=== PATIENT | female | born 1960 | race Caucasian/White ===

== ENCOUNTER 2019-02-25 17:55 | Inpatient (IN) ==
[2019-02-25] MEDS ORDERED: ASPIRIN PO ONE (18:11)
[2019-02-25] MEDS ORDERED: ASPIRIN PR ONE (18:11)
--- NOTE | 2019-02-25 18:27 | Diag Imaging Result Doc PS360 ---
EXAM: CHEST-2 VIEWS HISTORY: SHORTNESS OF BREATH TECHNIQUE: Chest two views COMPARISON: 02/13/2019 FINDINGS: The right lung remains well expanded and clear. There are infiltrates and atelectasis to the left lung with pleural thickening and an effusion similar to the prior study. The heart remains enlarged. IMPRESSION: Stable chest Electronically signed by Adriel Hugo 02/25/2019 6:24 PM
--- NOTE | 2019-02-25 18:28 | EKG Report ---
Test Performed on : 02/25/2019 6:03:19 PM Test Reason : SHORTNESS OF BREATH Blood Pressure : / mmHG Vent. Rate : 128 BPM Atrial Rate : 128 BPM P-R Int : 128 ms QRS Dur : 082 ms QT Int : 304 ms P-R-T Axes : 047 023 137 degrees QTc Int : 443 ms Sinus tachycardia. Possible Left atrial enlargement Nonspecific ST and T wave abnormality Abnormal ECG When compared with ECG of 30-MAY-2018 12:12, Vent. rate has increased BY 65 BPM Non-specific change in ST segment in Lateral leads T wave inversion more evident in Inferior leads T wave inversion now evident in Lateral leads Unconfirmed Result
[2019-02-25 18:41] LABS: BASO# 0.01 X1000 (0.0-0.2); EOS# 0.02 X1000 (0.0-0.7); EOS% 0.1 % (0.0-10.0); IMM GRAN% 0.5 % (0.0-0.5); LYMPH% 5.4 % (20.5-51.1); MCH 31.6 PG (27-31); MCHC 33.3 g/dL (33-37); MCV 94.7 FL (81-99); MONO# 1.62 X1000 (0.11-0.59); MONO% 7.9 % (1.7-9.3); MPV 10.1 FL (7.4-10.4); NEUT# 17.55 X1000 (1.4-6.5); NEUT% 86.1 % (42.2-75.2); PLT 266 X1000 (130-400); RBC 4.12 XMIL (4.2-5.4); RDW 13.6 % (11.5-14.5)
[2019-02-25 19:04] LABS: INR 1.18; PROTIME 15.1 Seconds (11.0-16.0); PTT 26.5 Seconds (22.3-41.8)
[2019-02-25 19:09] LABS: AGAP 20; ALB/GLOB RATIO 1.2; ALBUMIN 3.6 g/dL (3.5-5.0); ALKALINE PHOSPHATASE 125 U/L (32-104); BUN 21 mg/dL (8-22); CALCIUM 10.3 mg/dL (8.8-10.2); CHLORIDE 95 mmol/L (98-107); CK PROFILE 73 U/L (24-173); COSMO 279; CREATININE 0.7 mg/dL (0.5-0.9); ESTIMATED GFR > 60; GLUCOSE 103 mg/dL (70-104); GOT 15 U/L (10-30); GPT 18 U/L (10-36); POTASSIUM 3.6 mmol/L (3.5-5.1); SODIUM 138 mmol/L (136-145); TCO2 23 mmol/L (25-35); TOTAL BILIRUBIN 0.73 mg/dL (0.20-1.00); TOTAL PROTEIN 6.6 g/dL (6.3-8.3)
[2019-02-25] MEDS ORDERED: NS 1,000 ML IV ONE ×3 (19:09→21:24)
--- NOTE | 2019-02-25 19:09 | PROVIDER DOCUMENTATION ---
HPI-Respiratory General - General Chief Complaint: Shortness of Breath Stated Complaint: SOB Time Seen by Provider: 02/25/19 18:40 Source: patient Allergies/Adverse Reactions: Patient Allergies Allergy/AdvReac Type Severity Reaction Status Date / Time No Known Allergies Allergy Verified 02/25/19 18:36 Home Medications: Home Medication List Medication Instructions Recorded Confirmed Last Taken Type Fluoxetine [Prozac] 20 mg PO DAILY 08/21/17 02/25/19 02/25/19 History Hydrochlorothiazide 12.5 mg PO DAILY 08/21/17 02/25/19 02/25/19 History Naproxen Sodium [Aleve] 220 mg PO DAILY 08/21/17 02/25/19 02/25/19 History Albuterol Sulfate [Proair Hfa] 2 inh INHALATION Q4HR 02/25/19 02/25/19 02/25/19 History Amitriptyline HCl 25 mg PO QHS 02/25/19 02/25/19 02/24/19 History Atorvastatin Calcium 80 mg PO QHS 02/25/19 02/25/19 02/24/19 History Budesonide 0.5 mg INHALATION BID 02/25/19 02/25/19 02/25/19 History Cephalexin [Keflex] 500 mg PO Q6HR 02/25/19 02/25/19 02/25/19 History Ipratropium/Albuterol INH 1 puff INH RTQ6H 02/25/19 02/25/19 02/24/19 History [Combivent Respimat Inhaler] Oxycodone HCl/Acetaminophen 1 ea PO TID 02/25/19 02/25/19 02/21/19 History [Oxycodone-Acetaminophen 5-325] - History of Present Illness-Resp Nature of Presenting Problem: 59 yr old F, hx of lymphoma, small cell lung cancer, presenting with several day hx of worsening SOB, as well as worsening cough, vomiting, dizziness, and weakness. The pt has a complicated hx that involves treatment within the past year for SCC and lymphoma. She reports that she's had SOB for some time, but has found it to be worsening over the past several days. She also notes a decrease in energy over the past several weeks, as well as intermittent dizziness, though without loss of consciousness. She has attempted breathing treatments at home over the weekend which she notes has not improved her symptoms. She also co mplains of a LLQ abdominal pain that radiates through into her chest, as well as associated vomiting. Quality of Pain: reports: sharp Severity in ED: reports: moderate Onset/Duration: reports: other (past several days, about 5 or 6) Timing: reports: still present Context: reports: recent chemotherapy Cough Quality/Degree: reports: moderate, productive cough, sputum Current Respiratory Medication Therapy: Initiated A/A nebulizer Modifying Factors: improves with: exertion, coughing, deep breath Associated Symptoms: reports: denies symptoms Similar Symptoms Previously?: Yes Review of Systems - Adult - REVIEW OF SYSTEMS - ADULT Constitutional: reports: fatique Eyes: reports: no symptoms reported Ears, Nose, Mouth & Throat: reports: no symptoms reported Cardiovascular: reports: chest pain Respiratory: reports: cough, shortness of breath, wheezing Gastrointestinal: reports: nausea, vomiting Genitourinary: reports: no symptoms reported Musculoskeletal: reports: no symptoms reported Integumentary: reports: no symptoms reported Neurological: reports: dizziness/vertigo Psychiatric: reports: no symptoms reported Past History - Adult - PAST MEDICAL HISTORY-ADULT Review of Records: reports: Nursing Assessment Review Major Childhood Illnesses: reports: denies history Cardiovascular: reports: HTN Respiratory: reports: cancer, lung disease Endocrine/Immune: reports: Lymphoma - PRIOR SURGERIES/PROCEDURES Surgical/Procedure History: reports: recent surgery (may 2018) Physical Exam-General - PHYSICAL EXAM-ADULT Initial Vital Signs Reviewed: Yes - CONSTITUTIONAL General Appearance: alert, mild distress - EYES Eyes: PERRL/EOMI - HEAD, EARS, NOSE, MOUTH & THROAT HENMT: moist mucous membranes - RESPIRATORY Respiratory: wheezing, pain on inspiration - CARDIOVASCULAR Cardiovascular: tachycardia - GASTROINTESTINAL (ABDOMEN) Abdominal Exam: normal bowel sounds, soft, tenderness - MUSCULOSKELETAL Back Exam: CVA tenderness - NEUROLOGIC Neurologic: grossly normal - PSYCHIATRIC Psych/Mental Status: normal mood/affect, oriented x 3 - HEART Score HEART Score: History: Slightly Suspicious HEART Score: ECG: Non-Specific Repolarization Disturbance/LBBB/PM HEART Score: Age: 45-65 Years HEART Score: Risk Factors for Atherosclerotic Disease: 1 or 2 Risk Factors HEART Score: Troponin: < or = Normal Limit Total HEART Score:: 3 Progress - PLAN OF CARE/RESULTS Progress/Plan/Lab Results: Vital Signs - 8 hr 02/25/19 18:05 02/25/19 20:12 Temperature 97.5 F L Pulse Rate 127 H 88 Respiratory Rate 22 16 Blood Pressure 131/85 O2 Sat by Pulse Oximetry 95 Laboratory Results - last 24 hr 02/25/19 02/25/19 02/25/19 18:15 18:15 18:15 WBC 20.40 H RBC 4.12 L Hgb 13.0 Hct 39.0 MCV 94.7 MCH 31.6 H MCHC 33.3 RDW Std Deviation 13.6 Plt Count 266 MPV 10.1 Immature Gran % (Auto) 0.5 Neut % (Auto) 86.1 H Lymph % (Auto) 5.4 L [place] % (Auto) 7.9 Eos % (Auto) 0.1 Baso % (Auto) 0.0 Immature Gran # (Auto) 0.10 H Neut # (Auto) 17.55 H Lymph # (Auto) 1.10 L [place] # (Auto) 1.62 H Eos # (Auto) 0.02 Baso # (Auto) 0.01 PT INR PTT (Actin FS) Sodium 138 Potassium 3.6 Chloride 95 L Carbon Dioxide 23 L Anion Gap 20 BUN 21 Creatinine 0.7 Estimated GFR/1.73 m2 > 60 BUN/Creatinine Ratio 30 Glucose 103 Calculated Osmolality 279 Calcium 10.3 H Total Bilirubin 0.73 AST 15 ALT 18 Alkaline Phosphatase 125 H Creatine Kinase 73 Troponin T [id number] Pept Total Protein 6.6 Albumin 3.6 Globulin 3.0 Albumin/Globulin Ratio 1.2 Plasma Lactate 3.9 H Urine Source Urine Color Urine Turbidity Urine pH Ur Specific [place] Urine Protein Ur Glucose (Stick) Ur Ketones (Stick) Urine Blood Urine Nitrite Urine Bilirubin Urobilinogen Dipstick Urine Leukocytes Urine WBC (Auto) Urine RBC (Auto) U Epithel Cells (Auto) Urine Bacteria (Auto) Urine Crystals Small Round Cells Urine Casts Urine Yeast-like Cells 02/25/19 02/25/19 02/25/19 18:15 18:15 18:15 WBC RBC Hgb Hct MCV MCH MCHC RDW Std Deviation Plt Count MPV Immature Gran % (Auto) Neut % (Auto) Lymph % (Auto) [place] % (Auto) Eos % (Auto) Baso % (Auto) Immature Gran # (Auto) Neut # (Auto) Lymph # (Auto) [place] # (Auto) Eos # (Auto) Baso # (Auto) PT 15.1 INR 1.18 PTT (Actin FS) 26.5 Sodium Potassium Chloride Carbon Dioxide Anion Gap BUN Creatinine Estimated GFR/1.73 m2 BUN/Creatinine Ratio Glucose Calculated Osmolality Calcium Total Bilirubin AST ALT Alkaline Phosphatase Creatine Kinase Troponin T < 0.010 [id number] Pept 207 Total Protein Albumin Globulin Albumin/Globulin Ratio Plasma Lactate Urine Source Urine Color Urine Turbidity Urine pH Ur Specific [place] Urine Protein Ur Glucose (Stick) Ur Ketones (Stick) Urine Blood Urine Nitrite Urine Bilirubin Urobilinogen Dipstick Urine Leukocytes Urine WBC (Auto) Urine RBC (Auto) U Epithel Cells (Auto) Urine Bacteria (Auto) Urine Crystals Small Round Cells Urine Casts Urine Yeast-like Cells 02/25/19 21:00 WBC RBC Hgb Hct MCV MCH MCHC RDW Std Deviation Plt Count MPV Immature Gran % (Auto) Neut % (Auto) Lymph % (Auto) [place] % (Auto) Eos % (Auto) Baso % (Auto) Immature Gran # (Auto) Neut # (Auto) Lymph # (Auto) [place] # (Auto) Eos # (Auto) Baso # (Auto) PT INR PTT (Actin FS) Sodium Potassium Chloride Carbon Dioxide Anion Gap BUN Creatinine Estimated GFR/1.73 m2 BUN/Creatinine Ratio Glucose Calculated Osmolality Calcium Total Bilirubin AST ALT Alkaline Phosphatase Creatine Kinase Troponin T [id number]-[id number]-Qwaahwrklzw Pept Total Protein Albumin Globulin Albumin/Globulin Ratio Plasma Lactate Urine Source CLEAN CATCH Urine Color YELLOW Urine Turbidity HAZY Urine pH 6.0 Ur Specific [place] 1.029 Urine Protein 30 A Ur Glucose (Stick) NEGATIVE Ur Ketones (Stick) TRACE A Urine Blood TRACE A Urine Nitrite NEGATIVE Urine Bilirubin NEGATIVE Urobilinogen Dipstick 2 A Urine Leukocytes NEGATIVE Urine WBC (Auto) 10-20 A Urine RBC (Auto) <10 U Epithel Cells (Auto) >10 A Urine Bacteria (Auto) 1+ Urine Crystals NONE SEEN Small Round Cells TRANS PRESENT Urine Casts NONE SEEN Urine Yeast-like Cells PRESENT Orders Category Date Time Status Cardiac Monitoring DIRECTED Care 02/25/19 18:11 Active Nursing- MD Consult Request ROUTINE Care 02/25/19 21:23 Active Oxygen Therapy- ED Nursing DIRECTED Care 02/25/19 18:11 Active Saline Loc NOW Care 02/25/19 18:11 Active Physician/Provider Consults Routine Cons 02/26/19 08:00 Ordered CHEST-2 VIEWS [RAD] Stat Exams 02/25/19 18:11 Completed CTA [CT ANGIOGRM PULMONARY ARTERIES] [CT] Stat Exams 02/25/19 19:45 Completed BLOOD CULTURE [BLDCUL] Stat Lab 02/25/19 19:58 Results CBC WITH ELECTRONIC DIFF [HEME] Stat Lab 02/25/19 18:15 Completed CK PROFILE [SP CHEM] Stat Lab 02/25/19 18:15 Completed COMPREHENSIVE METABOLIC PANEL [CHEM] Stat Lab 02/25/19 18:15 Completed LACTATE, PLASMA [CHEM] Stat Lab 02/25/19 18:15 Completed PRO B-NATRIURETIC PEPTIDE Stat Lab 02/25/19 18:15 Completed PROTIME WITH INR [COAG] Stat Lab 02/25/19 18:15 Completed PTT [COAG] Stat Lab 02/25/19 18:15 Completed TROPONIN T Stat Lab 02/25/19 18:15 Completed URINALYSIS W/POSS RFLX CULT [URINALYSIS] Stat Lab 02/25/19 21:00 Completed URINE CULTURE [RM] Routine Lab 02/25/19 21:43 Received URINE MANUAL MICROSCOPIC [URINALYSIS] Stat Lab 02/25/19 21:00 Completed 0.9% Sodium Chloride Inj [Ns] 1,000 ml Med 02/25/19 21:24 Active IV 100 mls/hr 0.9% Sodium Chloride Inj [Ns] 1,000 ml Med 02/25/19 19:09 Discontinued IV 999 mls/hr 0.9% Sodium Chloride Inj [Ns] 1,000 ml Med 02/25/19 19:55 Discontinued IV 999 mls/hr Acetaminophen [Tylenol] Med 02/25/19 21:24 Active 650 mg PO Q6H PRN PRN Amitriptyline [Elavil] Med 02/26/19 21:00 Ordered 25 mg PO QHS Aspirin Med 02/25/19 18:11 Discontinued 300 mg SC NOW ONE Aspirin Med 02/25/19 18:11 Discontinued 325 mg PO NOW ONE Atorvastatin Calcium Med 02/26/19 21:00 Ordered 80 mg PO QHS Budesonide [Pulmicort] Med 02/26/19 07:30 Active 0.5 mg INH RTBID Enoxaparin [Lovenox] Med 02/25/19 21:30 Active 90 mg SUBQ Q12H Fluoxetine [Prozac] Med 02/26/19 09:00 Ordered 20 mg PO DAILY Hydrochlorothiazide Med 02/26/19 09:00 Ordered 12.5 mg PO DAILY Ipratropium [place] Neb [Atrovent Neb] Med 02/25/19 19:55 Discontinued 0.5 mg INH NOW ONE Ipratropium/Albuterol INH [Combivent Respimat Inhaler] Med 02/25/19 22:00 Ordered 1 puff INH RTQ6H Morphine Med 02/25/19 21:24 Active 2 mg IV Q3H PRN PRN Ondansetron [Zofran] Med 02/25/19 21:24 Active 4 mg IV Q4-6H PRN PRN Aerosol Treatments Routine Oth 02/25/19 19:55 Completed Aerosol Treatments Routine Oth 02/25/19 21:25 Completed Aerosol Treatments Stat Oth 02/25/19 19:55 Completed Aerosol Treatments Stat Oth 02/25/19 21:25 Completed CP/SOB/Palp >45 yrs of Age Stat Oth 02/25/19 18:11 Ordered MDI Treatments Stat Oth 02/25/19 21:25 Completed EKG [EKG] Stat Ther 02/25/19 18:11 Draft Echo Spec/Color Doppler Routine Ther 02/25/19 21:41 Ordered Transfer/Admit Order [TRANSFER] Routine Transfer 02/25/19 21:56 Ordered Result Diagrams: 02/25/19 18:15 02/25/19 18:15 - EKG 1 Time of EKG reading by physician:: 18:03 EKG Read and Signed by:: Yuval Silva EKG Interpretation (*Must complete 3 of following elements*): Abnormal Rate: 128 Rhythm: sinus tachycardia Romance: normal QRS: normal SC Interval: normal ST Wave: non-specific ST changes Prior EKG Comparison: unchanged from prior Comments: sinus tachy, but non-specific changes are stable - XRAY 1 XRAY Study: Chest Impression: See EMR Report XRAY Interpretation: stable chest; no acute processes when compared to recent previous imaging - CT/MRI 1 CT Study: Angiogram Impression: See EMR Report CT Results: small pulmonary emboli - CONSULTS/PCP/HOSPITALIST Notification #1 *Consult/PCP/Hospitalist*: Dr. Quan Time Discussed: 21:00 Consult Disposition: Admit Departure - Departure Date of Disposition Decision: 02/25/19 Time of Disposition Decision: 21:15 DIAGNOSIS: Shortness of breath, Leukocytosis Disposition: ADMITTED INPATIENT 09 Certified Medical Emergency: Emergent Condition: Fair Referrals and Follow-Ups: Monica Yang MD [Primary Care Provider] - - Critical Care Note This patient required my direct & personal management of CC.: No Attestation - Physician/ LEANNE Attestation Patient care was provided by Advanced Practice Provider:: No The physician spent face to face time with patient:: Yes Advanced Practice Provider documentation review:: Supervising physician onsite and consulted in the evaluation and care of this patient. The physician did have a face to face encounter with the patient.
[2019-02-25] MEDS ORDERED: ATROVENT NEB INH ONE (19:55)
--- NOTE | 2019-02-25 20:54 | Diag Imaging Result Doc PS360 ---
EXAM: CT ANGIOGRM PULMONARY ARTERIES HISTORY: SOB, Pain with inspiration TECHNIQUE: CT chest with intravenous contrast. Pulmonary R2 protocol with MIP images. COMPARISON: 08/13/2017 FINDINGS: Multilevel loculated left pleural effusions versus empyemas. There is left lung atelectasis and infiltrates. Possible left upper lobectomy. No large central pulmonary emboli. There are tiny peripheral pulmonary emboli in the right middle and lower lobes. Moderate-sized pericardial effusion. No cardiomegaly. No thoracic aortic aneurysm or dissection. Prominent mediastinal nodes. Trace right pleural fluid. There are lytic lesions within several left ribs. Enlarged lymph nodes in the lower neck. IMPRESSION: 1.Tiny peripheral pulmonary emboli 2.Abnormally enlarged mediastinal nodes and lytic destruction within several left ribs 3.Left upper lobectomy with pleural thickening and loculated effusions 4.Pericardial effusion This exam was performed using automated exposure control, adjustment of mA or kV according to patient size, and/or use of iterative reconstruction technique. Electronically signed by Adriel Hugo 02/25/2019 8:52 PM
[2019-02-25 21:11] LABS: URINE SOURCE CLEAN CATCH
[2019-02-25 21:17] LABS: BILIRUBIN URINE NEGATIVE (NEGATIVE); BLOOD URINE TRACE (NEGATIVE); COLOR YELLOW; GLUCOSE URINE NEGATIVE (NEGATIVE); KETONE URINE TRACE mg/dL (NEGATIVE); LEUKOCYTES URINE NEGATIVE (NEGATIVE); NITRITE URINE NEGATIVE (NEGATIVE); PROTEIN URINE 30 mg/dL (NEGATIVE); SP GRAVITY URINE 1.029; TURBIDITY URINE HAZY (CLEAR); UROBILINOGEN URINE 2 mg/dL (NORMAL)
[2019-02-25] MEDS ORDERED: TYLENOL PO PRN (21:24)
[2019-02-25] MEDS ORDERED: ZOFRAN IV PRN (21:24)
[2019-02-25 21:41] LABS: UR EPITHELIAL CELLS >10 /HPF (<10); URINE BACTERIA 1+ /HPF; URINE RBC <10 /HPF (<10)
[2019-02-25 21:48] LABS: URINE CASTS NONE SEEN; URINE CRYSTALS NONE SEEN; URINE SMALL ROUND CELLS TRANS PRESENT; URINE YEAST PRESENT
[2019-02-25] MEDS: COMBIVENT RESPIMAT INHALER INH SCH (22:00)
[2019-02-25] MEDS: LOVENOX SUBQ SCH (23:12)
[2019-02-26] MEDS ORDERED: VANCOMYCIN IV PER PHARMACY MISC SCH (01:15)
[2019-02-26] MEDS: MORPHINE IV PRN (02:53)
[2019-02-26] MEDS: COMBIVENT RESPIMAT INHALER INH SCH (03:11)
[2019-02-26] MEDS: ZOSYN 3.375 GM in NS 50 ML IV SCH ×4 (03:16→18:15)
[2019-02-26] MEDS ORDERED: NS 1,000 ML ONE (03:25)
[2019-02-26] MEDS ORDERED: VANCOMYCIN 2,350 MG in NS 500 ML IV ONE (03:30)
--- NOTE | 2019-02-26 04:39 | HISTORY AND PHYSICAL ---
PRIMARY CARE PHYSICIAN: Monica Yang MD ONCOLOGIST: Mayr Ann Fisher MD CHIEF COMPLAINT: Shortness of breath and cough. HISTORY OF PRESENT ILLNESS: Ms. Villagomez is a 59-year-old female who comes in after having cough for the past 4 months and increasing shortness of breath with pain in her chest that has more to do with inspiration than cough than traditional chest pain. She was also coughing so much that she was having vomiting, dizziness and weakness. 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 Her last chemotherapy treatment was 9 months ago. She also has hypertension, hyperlipidemia, migraines and arthritis. She has had decreased energy over the past several days and the intermittent dizziness without loss of consciousness. She stated that she has been lying around for the past 1 more week related to not feeling well. She did attempt breathing treatments but had no improvement. She has also had some abdominal pain that was associated with the vomiting. She also stated that the day before yesterday she was lying in bed and felt as if she heard a pop in her chest, and then she coughed up a large amount of what she said in her own words "looked like pus." A CT angio was completed in the emergency room, which showed tiny peripheral pulmonary emboli, abnormal enlarged mediastinal nodes and lytic destruction within several left ribs. Left upper lobectomy with pleural thickening and loculated effusion, pericardial effusions. There was mention of the effusions possibly being empyemas. She will be admitted for antibiotic treatment and further evaluation and treatment. PAST MEDICAL HISTORY: See HPI. PREVIOUS SURGICAL HISTORY: Right nodule right groin resection. Left upper lobectomy. SOCIAL HISTORY: No alcohol. No illicit drugs. Quit smoking 1-1/2 years ago. She was a pack-per- day smoker for many years. FAMILY HISTORY: Positive for hypertension, also father had lung cancer, mother had colon cancer, and brother had lung cancer with mets to the liver and bone. ALLERGIES: NO KNOWN DRUG ALLERGIES. HOME MEDICATIONS: Albuterol inhaler q.4h., Keflex 500 mg p.o. q.6 p.r.n., naproxen 220 mg p.o. daily, [place] 5 p.o. t.i.d., amitriptyline 25 mg p.o. at bedtime, atorvastatin 80 mg p.o. at bedtime, 0.5 mg inhalation b.i.d., Prozac 20 mg p.o. daily, hydrochlorothiazide 12.5 mg p.o. daily, DuoNeb q.6h. REVIEW OF SYSTEMS: A 14 point review of systems conducted with the patient. Pertinent positives listed above in the HPI. All other systems are reviewed and found to be negative. PHYSICAL EXAMINATION: VITAL SIGNS: Temperature 97.5, pulse 118, respirations 16, blood pressure 131/85, oxygen saturation 96% on 2L nasal cannula. GENERAL: Pleasant 59-year-old female lying on the ER stretcher. Answers all questions appropriately. She is alert and oriented x3. HEENT: Head is atraumatic, normocephalic. Pupils are equal, round, react to light. Extraocular movements intact. Sclera anicteric. Conjunctiva pink. Oral mucosa dry. Poor dentition noted. NECK: Supple. No JVD. Cervical chain lymph nodes are enlarged, greater on right than left. Trachea is midline. CARDIAC: S1, S2 appreciated. No murmurs, gallops, rubs. LUNGS: Mild expiratory wheeze decreased bilaterally. No rhonchi. No rales. Symmetrical rise and fall of respirations. ABDOMEN: Protuberant. Soft, nondistended. Tender in the right lower quadrant. No rebound tenderness. No guarding. Bowel sounds present all 4 quadrants, normoactive. No pulsatile mass or organomegaly. EXTREMITIES: No clubbing or cyanosis. Trace edema bilateral lower extremities. Both lower extremities are cool to touch, 1+ pedal pulses bilaterally. GENITOURINARY: No bladder distention. Patient voids, otherwise deferred. NEUROLOGICAL: Alert and oriented x3. No focal motor deficits. Otherwise nonfocal examination. DIAGNOSTIC DATA: For CT scan please see HPI. Chest x-ray showed infiltrates and atelectasis of the left lung with pleural thickening and diffusion. EKG sinus tachycardia with a rate of 128. Nonspecific ST and T-wave abnormality. LABORATORY DATA: WBC 20.40, hemoglobin 13, hematocrit 39, platelet count 266. Sodium 138, potassium 3.6, chloride 95, carbon dioxide 23, BUN 21, creatinine 0.7, glucose 103, plasma lactate 3.9. Urine unremarkable. ASSESSMENT AND PLAN: 1. Pneumonia with pleural effusion versus pneumonia with empyema. Will start the patient on vancomycin and Zosyn. Blood cultures are pending. Consult Dr. Lara with Pulmonology. Continue DuoNebs. She is in no acute respiratory distress at this time. Will not give steroids at this time. 2. Sepsis secondary to #1. Patient received fluid resuscitation in the emergency room. Will continue crystalloid treatment at 100 mL/hour. As noted, blood cultures are pending. 3. Small pulmonary emboli. These were noted on the CT scan. Will order 1 mg/kg of Lovenox q.12. I am unsure if these are septic emboli or related to possible DVT. Will do lower extremity ultrasound to rule out further clot burden in the lower extremities. 4. Hypertension. Continue home medication. 5. Hyperlipidemia. Continue home medications. 6. History of cancer and lymphoma. Aware. Further recommendations per patient's clinical course. Dictated by JAIRO Baxter for Luis Miguel Cardoza MD Addendum: Patient seen and examined by myself. Agree with JAIRO note. It reflects my assessment and plan. Patient is being admitted to hospital for PE so will start Lovenox and antibiotics for possible pneumonia. Will monitor patient closely. cc: JAIRO Baxter MD Bhavna Gowda, MD Heather Shah, MD MTDD
[2019-02-26 05:29] LABS: BASO# 0.02 X1000 (0.0-0.2); BASO% 0.1 % (0.0-0.8); EOS# 0.01 X1000 (0.0-0.7); EOS% 0.1 % (0.0-10.0); HEMATOCRIT 36.7 % (37.0-47.0); HEMOGLOBIN 11.8 g/dL (12.0-16.0); IMM GRAN# 0.07 X1000 (0.0-0.04); IMM GRAN% 0.4 % (0.0-0.5); LYMPH# 1.12 X1000 (1.2-3.4); LYMPH% 6.5 % (20.5-51.1); MCH 31.1 PG (27-31); MCHC 32.2 g/dL (33-37); MCV 96.6 FL (81-99); MONO# 1.42 X1000 (0.11-0.59); MONO% 8.3 % (1.7-9.3); MPV 10.2 FL (7.4-10.4); NEUT# 14.56 X1000 (1.4-6.5); NEUT% 84.6 % (42.2-75.2); PLT 236 X1000 (130-400); RDW 13.8 % (11.5-14.5)
[2019-02-26 05:55] LABS: AGAP 17; BUN 19 mg/dL (8-22); CALCIUM 9.3 mg/dL (8.8-10.2); CHLORIDE 97 mmol/L (98-107); COSMO 277; CREATININE 0.7 mg/dL (0.5-0.9); ESTIMATED GFR > 60; GLUCOSE 112 mg/dL (70-104); POTASSIUM 3.2 mmol/L (3.5-5.1); SODIUM 137 mmol/L (136-145); TCO2 23 mmol/L (25-35)
[2019-02-26] MEDS ORDERED: KLOR-CON PO ONE (08:27)
[2019-02-26] MEDS: LOVENOX SUBQ SCH (08:30)
[2019-02-26] MEDS ORDERED: HYDROCHLOROTHIAZIDE PO SCH (09:00)
--- NOTE | 2019-02-26 09:29 | PROGRESS NOTE ---
DATE: 02/26/2019 SUBJECTIVE: This patient is sitting and eating by herself in bed. As per the patient, she has been short of breath for the past 4 months but it has been getting worse for the past 2 days. Also she has been having chills. She started coughing up phlegm, yellow/greenish. CT angiogram of the lungs showed a tiny peripheral pulmonary emboli and abnormally enlarged mediastinal nodes and lytic destruction within several left ribs, left upper lobectomy with pleural thickening and loculated effusions and pericardial effusion. PHYSICAL EXAMINATION: Vital Signs: Temperature 97.5 degrees, pulse 111,respiratory rate 33, blood pressure 155/95, oxygen saturation 97% on 2 L of nasal cannula. HEENT: Head normocephalic, no trauma. PERRLA. Neck: Supple. No JVD. No masses. Central trachea. Chest: Decreased breath sounds mostly on the left side. She does have a scar on the left posterior thoracic area. She does have crepitus and crackles on the left side as well mostly at the bases. Painful to palpation at the level of the thoracic wall. Abdomen: Soft, nontender, nondistended. No hepatosplenomegaly. Extremities: Trace to 1+ edema. No clubbing. No cyanosis. Neurological: The patient is completely alert. She is oriented x3. No focal deficits. LABORATORY: WBC 17.2, hemoglobin 11.8, hematocrit 36.7, and platelets 236,000. Sodium 137, potassium 3.2, chloride 97, bicarbonate 23, BUN 19, creatinine 0.7 glucose 112, calcium 9.3, TSH 1.3. ASSESSMENT AND PLAN: 1. Left-sided pneumonia with pleural effusion versus empyema, continue with vancomycin and Zosyn. This patient had a procedure done on the left side of the abdomen at the level of the left lung, she had a lobectomy done, upper lobectomy, 1 year and 5 months ago, due to cancer. We have requested an evaluation by Pulmonary Department. Continue with oxygen supplementation and breathing treatment. 2. Sepsis secondary to #1. She received already fluid and she is tolerating really well p.o. She does not look dehydrated at this moment. We will continue with same management. 3. Hypokalemia. We will replace the potassium. 4. Small pulmonary emboli noted on the CT scan. She has been placed on anticoagulation twice a day. I will get also Hematology/ Oncology Department to evaluate this patient, and I will wait for the lower extremity ultrasound that has been already requested, as well as the echocardiogram. 5. History of left lung cancer and lymphoma, aware. 6. Hypertension. Continue home medication. 7. Hyperlipidemia. Continue home medication. 8. Hypoxemic respiratory failure likely due to pneumonia, pulmonary edema and/or empyema. cc: Chris Andrade MD
[2019-02-26] MEDS: PROZAC PO SCH (09:48)
[2019-02-26] MEDS: PULMICORT INH SCH ×2 (10:24→21:12)
[2019-02-26] MEDS: DUONEB (A & A) INH SCH ×4 (10:25→21:12)
--- NOTE | 2019-02-26 12:51 | ECHO REPORT ---
ORDER DATE: 02/25/2019 ECHOCARDIOGRAPHIC MEASUREMENTS: 1. Interventricular septum 1.2. 2. Left ventricular posterior wall 1.5. 3. Diastolic diameter 4.3. 4. Technically suboptimal study. Normal left ventricular cavity size. Estimated ejection fraction of 65%. Endocardium not well visualized in all views. This is a limited study to evaluate for pericardial effusion. SUMMARY: 1. Pulmonic valve not well visualized. 2. Mitral valve was normal. 3. Tricuspid valve was normal. 4. Aortic valve leaflets trileaflet. 5. Anterior echo-free space was noted, could represent small effusion versus pericardial fat pad. There was granularity also noted. Posteriorly, there is a trace effusion. 6. In the pleural space as well as anteriorly, there was extracardiac mass or compression noted. Would recommend a CT scan to evaluate for extracardiac mass and pleural effusion. 7. Right ventricle cavity size appears to be normal, not well visualized. There is no definite evidence of tamponade. cc: MD Luis Miguel Dudley MD
[2019-02-26] MEDS: VANCOMYCIN 1,250 MG in NS 250 ML IV SCH (15:01)
[2019-02-26] MEDS ORDERED: HEPARIN 25,000 UNITS/D5W 25,000 UNIT/250 ML IV.SOLN IV SCH ×4 (20:00→21:00)
[2019-02-26] MEDS ORDERED: HEPARIN IV PRN ×2 (20:00→20:24)
[2019-02-26] MEDS ORDERED: HEPARIN IV ONE ×3 (20:00→20:24)
[2019-02-26] MEDS: ELAVIL PO SCH (20:01)
[2019-02-26] MEDS: LIPITOR PO SCH (20:01)
[2019-02-26 20:18] LABS: INR 1.21; PROTIME 15.4 Seconds (11.0-16.0)
[2019-02-26 20:19] LABS: PTT 34.7 Seconds (22.3-41.8)
--- NOTE | 2019-02-26 22:53 | EKG Report ---
Test Performed on : 02/26/2019 10:05:44 PM Test Reason : elevated HR Blood Pressure : / mmHG Vent. Rate : 130 BPM Atrial Rate : 130 BPM P-R Int : 104 ms QRS Dur : 086 ms QT Int : 392 ms P-R-T Axes : 013 025 070 degrees QTc Int : 576 ms Sinus tachycardia. with short AR T wave abnormality, consider inferior ischemia Abnormal ECG When compared with ECG of 25-FEB-2019 18:03, (Unconfirmed) Nonspecific T wave abnormality now evident in Anterior leads Confirmed by Sunny FUENTES, Sudhakar Miranda ([id number]) on 02/28/2019 6:58:45 AM
[2019-02-27] MEDS: ZOSYN 3.375 GM in NS 50 ML IV SCH ×4 (01:35→21:19)
[2019-02-27] MEDS: VANCOMYCIN 1,250 MG in NS 250 ML IV SCH ×2 (03:44→17:30)
[2019-02-27] MEDS: DUONEB (A & A) INH SCH ×5 (03:50→21:47)
[2019-02-27 06:53] LABS: BASO# 0.01 X1000 (0.0-0.2); BASO% 0.1 % (0.0-0.8); EOS# 0.04 X1000 (0.0-0.7); EOS% 0.3 % (0.0-10.0); HEMATOCRIT 35.4 % (37.0-47.0); HEMOGLOBIN 11.4 g/dL (12.0-16.0); IMM GRAN# 0.08 X1000 (0.0-0.04); IMM GRAN% 0.5 % (0.0-0.5); LYMPH# 0.84 X1000 (1.2-3.4); LYMPH% 5.4 % (20.5-51.1); MCH 31.1 PG (27-31); MCHC 32.2 g/dL (33-37); MCV 96.7 FL (81-99); MONO% 8.4 % (1.7-9.3); MPV 10.3 FL (7.4-10.4); NEUT# 13.22 X1000 (1.4-6.5); NEUT% 85.3 % (42.2-75.2); PLT 259 X1000 (130-400); RBC 3.66 XMIL (4.2-5.4); WBC 15.49 X1000 (4.8-10.8)
--- NOTE | 2019-02-27 07:10 | PULMONOLOGY CONSULTATION ---
DATE: 02/26/2019 REQUESTING PHYSICIAN: Dr. Quan. REASON FOR CONSULTATION: Pleural effusion with possible pneumonia or empyema. HISTORY OF PRESENT ILLNESS: Ms. Villagomez is a 59-year-old white female with prior tobacco history, who underwent a left upper lobectomy on 10/17/2017 for a stage I squamous cell carcinoma. The patient did not require chemotherapy. Followup evaluations revealed increased adenopathy in her groin and axilla, and biopsy of a right inguinal lymph node on 06/03/2018 revealed a follicular lymphoma, which was grade 1 to 2 of 3. She reports she received [address] scan of the thorax performed at [facility] on 07/25/2018 revealed resolution of all adenopathy within the chest. At that time, she was radiographically without disease. A few months ago, she noted increased cough with increased shortness of breath and some left-sided chest pain. She does report some cough and intermittent sweats and fevers, but she has difficulty quantitating the duration of time that this has been occurring. She was evaluated by Dr. Yang, who ordered a chest x-ray on 02/13/2019, which revealed left lower lobe lingular consolidation. She underwent a CT scan of the chest at [facility] on 02/17/2019, which revealed mediastinal and AP window adenopathy, along with areas of left lung consolidation with significant loculated pleural effusions. The patient presented to the emergency room yesterday evening with increased shortness of breath, emesis, and weakness. She had recently been treated for a new-onset hypercalcemia of greater than [address] scan of the thorax was repeated, which reveals multiple areas of loculated pleural effusions, with atelectasis and infiltrates in the left lung. She has small peripheral emboli. There is a small pericardial effusion with possible lytic lesions within several ribs. Two CT scans were compared by this practitioner, and there has not been a significant overnight stocker the last 8 days. PAST MEDICAL HISTORY: 1. Early-stage lung cancer, status post resection as per above. 2. Lymphoma as per above. 3. Recent onset of hypercalcemia. 4. Poor dentition. 5. Morbid obesity. 6. History of depression. 7. Dyslipidemia. 8. Hypertension. PHYSICAL EXAMINATION: General: An obese, white female, resting comfortably and in no distress. Vital Signs: She has been afebrile during this hospitalization. Blood pressure 128/95, heart rate 24, respiratory rate 18, oxygen saturation 97% on 3 L per nasal cannula. HEENT: Pupils are equal and reactive. Oropharynx is clear. Neck: Supple. Chest: Diminished breath sounds throughout the left lung. Cardiac: S1, S2. Abdomen: Soft. Extremities: Without edema. IMAGING AND LABORATORY DATA: Dopplers of the lower extremities reveal clots in both lower extremities, according to the patient. CT scan as per HPI. White blood count on admission 20,000 with a left shift. Sodium 137, potassium 3.2, chloride 97, bicarbonate 23, BUN 19, creatinine 0.7. IMPRESSION: A 59-year-old with leukocytosis, multiple loculated areas of pleural fluid, subjective fevers, subjective sweats, history of lymphoma, history of lung cancer, poor dentition, with new-onset hypercalcemia, acute pulmonary emboli and bilateral lower extremity DVTs. The patient's presentation is complex, and it is not clear that she has a single problem leading to all of her symptoms. The patient does have poor dentition, and with a completely normal postoperative-appearing chest x-ray 3 months ago, it would seem unlikely that her current chest x-ray would be related to recurrence of her lung cancer. This could represent an empyema with an anaerobic organism. She is at risk for pneumonia and empyema with her poor dentition. However, this would not explain her hypercalcemia. The patient received Lovenox earlier today, and therefore an aspiration of a pleural pocket will need to be delayed. I will transition her to intravenous heparin so that this can be interrupted just prior to a thoracentesis tomorrow morning. PLAN: 1. Continue current antibiotic regimen. 2. Transition the patient to IV heparin. 3. Ultrasound versus CT-guided thoracentesis to be discussed with the radiologist tomorrow after heparin has been interrupted. 4. Anticipate the need for chest tube placement with possible thoracoscopy and decortication if the patient has empyema given the multiple areas of loculated pleural effusions. cc: MD Monica Alba MD Heather Shah, MD MTDD
[2019-02-27 07:26] LABS: AGAP 20; ALB/GLOB RATIO 1.1; ALBUMIN 3.1 g/dL (3.5-5.0); ALKALINE PHOSPHATASE 138 U/L (32-104); BUN 17 mg/dL (8-22); CALCIUM 9.1 mg/dL (8.8-10.2); CHLORIDE 100 mmol/L (98-107); COSMO 282; CREATININE 0.7 mg/dL (0.5-0.9); ESTIMATED GFR > 60; GLUCOSE 112 mg/dL (70-104); GOT 20 U/L (10-30); GPT 33 U/L (10-36); MAGNESIUM 1.9 mg/dL (1.5-2.7); POTASSIUM 2.9 mmol/L (3.5-5.1); SODIUM 140 mmol/L (136-145); TCO2 20 mmol/L (25-35); TOTAL PROTEIN 5.8 g/dL (6.3-8.3)
[2019-02-27] MEDS: HYDROCHLOROTHIAZIDE PO SCH (09:45)
[2019-02-27] MEDS: KLOR-CON PO SCH ×2 (09:46→21:20)
[2019-02-27] MEDS: PROZAC PO SCH (09:46)
[2019-02-27] MEDS: PULMICORT INH SCH ×2 (10:56→21:47)
--- NOTE | 2019-02-27 11:06 | PROGRESS NOTE ---
DATE: 02/27/2019 SUBJECTIVE: This patient is resting comfortably in bed. She is still tachypneic and tachycardic, her potassium level is low. Pulmonary Department evaluated this patient. This fluid has to be drained. She has been placed on a heparin drip. We will continue with the same management. OBJECTIVE: Vital Signs: Temperature 98.6 degrees, pulse 112, respiratory rate 24, blood pressure 142/98, and oxygen saturation 97% on 3 L of nasal cannula. HEENT: Head normocephalic. No trauma. PERRLA. Neck: Supple. No JVD. No masses. Central trachea. Chest: Decreased breath sounds mostly on the left side. She does have a scar on the left posterior thoracic area, crepitus and crackles on the left side mostly at the bases. Painful to palpation at the level of the thoracic area as well. Abdomen: Soft, nontender, and nondistended. No hepatosplenomegaly. Extremities: Trace to 1+ edema. No clubbing. No cyanosis. Neurological: Patient is completely alert. She is oriented x3. No focal deficits. LABORATORY: WBC 15.4, hemoglobin 11.4, hematocrit 35.4, and platelets 259,000. Sodium 140, potassium 2.9, chloride 100, bicarbonate 20, BUN 17, creatinine 0.7 glucose 112, and calcium 9.1. ASSESSMENT AND PLAN: 1. Left-sided pneumonia with pleural effusion versus empyema. Continue with the same management. We want to try to remove some fluid from that area. Likely, this patient will need a thoracentesis done, and probably a chest tube will be placed. I will continue following the recommendations of Pulmonary Department. 2. Sepsis secondary to #1. Continue with same management. WBC trending down. 3. Hypokalemia. I will replace the potassium today again. 4. Small pulmonary emboli noted on the CT scan. Also, I received the report yesterday that she had a DVT at the level of the lower extremity, pending final report but continue with anticoagulation. 5. History of left lung cancer with lymphoma, aware, status post lobectomy. 6. Hypertension. Continue home medication. 7. Hyperlipidemia. Continue home medication. 8. Hypoxemic respiratory failure likely due to pneumonia, pulmonary edema and/or empyema. Continue oxygen supplementation and breathing treatment. cc: Chris Andrade MD
--- NOTE | 2019-02-27 12:47 | Diag Imaging Result Doc PS360 ---
EXAM: CHEST-2 VIEWS 02/27/2019 HISTORY: POST LEFT THORA TECHNIQUE: Upright inspiratory and expiratory AP chest COMMENT: There is no evidence of pneumothorax. The loculated pleural effusion which was demonstrated on 02/25/2019 and appears slightly worse but the inspiration is not as optimal even on the inspiration view. IMPRESSION: No evidence of pneumothorax. Electronically signed by Clinton De La Cruz 02/27/2019 12:45 PM
--- NOTE | 2019-02-27 12:54 | Diag Imaging Result Doc PS360 ---
EXAM: US THORACENTESIS W/IMAGE GUIDE 02/27/2019 HISTORY: pleural effusion TECHNIQUE: Ultrasound-guided left thoracentesis COMMENT: The risks and benefits of the procedure including the possibility of bleeding, infection, reaction to lidocaine, or pneumothorax was discussed with the patient and she agreed to the procedure. Following sterile preparation of the skin posteriorly and administration 1% lidocaine to the skin and deeper soft tissues, 500 mL of grossly sanguinous fluid was drained. This was sent to the laboratory in its entirety. There are no immediate complications. IMPRESSION: Successful ultrasound-guided left thoracentesis. Electronically signed by Clinton De La Cruz 02/27/2019 12:51 PM
[2019-02-27 13:54] LABS: AMYLASE BODY FLUID 15 U/L; GLUCOSE BODY FLUID 65 mg/dL; TOTAL PROT BODY FLUID 4.3 g/dL
[2019-02-27 13:56] LABS: LDH BODY FLUID > 2500 U/L
[2019-02-27] MEDS ORDERED: HEPARIN IV PRN (14:20)
[2019-02-27 14:33] LABS: BODY FLUID SOURCE PLEURAL FLUID
[2019-02-27 14:34] LABS: PH BODY FLUID 7; SPECIMEN PLEURAL FLUID
[2019-02-27 14:35] LABS: WBC BF 1273 /cumm
[2019-02-27 14:36] LABS: MONOS 58 %; POLYS 42 %
[2019-02-27] MEDS ORDERED: HEPARIN 25,000 UNITS/D5W 25,000 UNIT/250 ML IV.SOLN IV SCH (17:45)
[2019-02-27] MEDS: ELAVIL PO SCH (21:20)
[2019-02-27] MEDS: LIPITOR PO SCH (21:20)
--- NOTE | 2019-02-27 22:03 | Extremity Venous Study ---
PROCEDURE NAME: Venous U/S Bilateral Legs - 02/26/2019 STUDY: Bilateral lower extremity venous study. Previous comparison from 05/03/2018. REQUESTING PROVIDER: JAIRO Baxter. CHASER TAR: Charles. INDICATIONS: 1. Severe shortness of breath. 2. PE. 3. Bilateral lower extremity edema. EQUIPMENT: [employer] E9 ultrasound system with a 9 L-D transducer. FINDINGS: Images of bilateral lower extremity venous systems were obtained in both sagittal and transverse planes. Doppler was used to evaluate veins for spontaneity, phasicity, respiratory excursion, and digital augmentation. RESULTS: There appears to be a DVT that appears nonocclusive, but acute, in the right popliteal vein and the left common femoral vein. There also appears to be acute DVT in the left peroneal vein. There also appears to be pulsatile flow in both venous systems suggestive of central cardiac issue. It should be noted that the tech did not check for reflux, given the patient's severe shortness of breath. INTERPRETATION: Acute nonocclusive deep vein thrombosis in the right popliteal and left common femoral vein. There also appears to be an acute deep vein thrombosis in the left peroneal vein. There is pulsatile flow noted in bilateral legs which would represent a central cardiac issue, which I would recommend handling clinically. cc: MD Thomas Lara CRNP
--- NOTE | 2019-02-27 22:58 | HEMO/ONC CONSULTATION ---
DATE: 02/26/2019 REQUESTING PHYSICIAN: Hospitalist service. REASON FOR CONSULTATION: Patient known; history of lymphoma and lung cancer. HISTORY OF PRESENT ILLNESS: Ms. Villagomez is a 59-year-old female who is known to us, as we follow her for both a left upper lobe squamous cell carcinoma as well as grade 1 follicular lymphoma. Most recently, we have been working her up for the possibility of recurrent lung cancer versus recurrent lymphoma. She was treated with Rituxan back in May 2018 for her follicular lymphoma. She was actually in the office and was suffering with pneumonia at that time. She was already on oral antibiotics, which we encouraged her to finish. She has now presented with increased shortness of breath as well as fevers. During her workup, she was found to have pneumonia with pleural effusions versus pneumonia with empyema. She also is believed to be septic. They have found pulmonary emboli as well as DVTs in her lower extremities. She is now in the hospital, receiving IV antibiotics as well as therapeutic Lovenox. She was already set up to receive a PET scan as an outpatient for further evaluation. She will also need a bronchoscopy for tissue sampling when able. She was found to have hypercalcemia while she was in our office on Sunday, and she was treated with Xgeva. Due to that fact, we are leaning more toward the likelihood that she has a recurrent lung cancer. I believe Dr. Lara from Pulmonology is already consulted. Currently the patient reports that she is feeling some better since arriving at the hospital. PAST MEDICAL HISTORY: 1. Squamous cell lung cancer of the left upper lobe lung lesion. She is status post left upper lobectomy, and she did not require any adjuvant therapy. 2. Follicular lymphoma. She was found to have stage III disease and was actually treated with Rituxan back in May 2018. 3. Back pain, chronic, stable. 4. Lymphedema of right lower leg, status post lymph node resection. PAST SURGICAL HISTORY: 1. Left upper lobectomy. 2. Lymph node resection from the right groin. SOCIAL HISTORY: The patient denies any alcohol use. She quit smoking back when she was diagnosed with lung cancer in 2018. Prior to that she smoked a pack of cigarettes per day for about 40 years. FAMILY HISTORY: Positive for hypertension as well as lung cancer and colon cancer. REVIEW OF SYSTEMS: Twelve-point review of systems has been completed and is negative except for expressed in HPI. PHYSICAL EXAMINATION: Vital signs: Temperature 98.8 degrees, heart rate 91, respirations 24, blood pressure 128/95, O2 saturation 97% on 3 L nasal cannula.General: This is a female sitting in her hospital bed. She has a family member at bedside. She does appear to be in mild distress secondary to her breathing. HEENT: Head normocephalic, atraumatic. Eyes: Pupils equal, round and reactive. Ears, nose, throat, neck and mouth: Oral mucosa appears to be normal. Gross auditory acuity is intact. Cardiovascular: S1, S2 heard. Respiratory: She has wheezing and rhonchi noted throughout. She has rales as well. Gastrointestinal: Abdomen is soft. Musculoskeletal: No bony abnormalities. Extremities: She does not have any bilateral extremity edema noted at this time, though she says it has improved since she got here. Neurologic: The patient is alert and oriented. LABORATORY DATA: White blood cells are 17.2, hemoglobin 11.8, platelet count 236,000. DIAGNOSTIC DATA: Findings on scans as per the HPI. ASSESSMENT AND PLAN: 1. Left upper lobe squamous cell carcinoma, status post left upper lobectomy. There is concern that she may have recurrent disease. She is scheduled for a PET scan as an outpatient. We also recommend that she get a bronchoscopy for tissue diagnosis. These are all set up for an outpatient basis and can be done once she has recovered some from her acute illness. 2. Grade 1 follicular lymphoma, treated back in May 2018. She could also be having a recurrence of a flare of lymphoma; however, due to her hypercalcemia we are leaning more toward the lung cancer recurrence. Bronchoscopy for tissue diagnosis as per above. 3. Pneumonia with possible empyema. Dr. Lara is on board. It looks like they are going to set her up for a thoracentesis for further evaluation. Continue intravenous antibiotics. Management per the primary team and Pulmonology. 4. Sepsis secondary to pneumonia. Continue intravenous antibiotics. Follow cultures. 5. Pulmonary emboli as well as deep venous thromboses. Continue with 1 mcg/kg of Lovenox q.12 hours. We want to thank you for consulting us on Ms. Villagomez. We will continue to follow along and adjust our treatment plan per her hospital course. Dictated by ELIAS Levine for Mary Ann Fisher MD cc: Mary Ann Fisher MD I have seen and examined this patient and the above note reflects my history, physical examination, assessment and plan. Mary Ann [facility] MD [facility]
[2019-02-28] MEDS: ZOSYN 3.375 GM in NS 50 ML IV SCH ×4 (01:49→21:02)
[2019-02-28] MEDS: DUONEB (A & A) INH SCH ×4 (03:07→21:59)
--- NOTE | 2019-02-28 03:26 | PULMONOLOGY PROGRESS NOTE ---
DATE: 02/27/2019 SUBJECTIVE: The patient is awake and alert. Her heparin was discontinued earlier today after I reviewed her case with Radiology. She went down for a thoracentesis. She reports there were some pain associated with removal of the fluid, 500 mL of sanguinous fluid was drained and sent to the lab. OBJECTIVE: Vital Signs: The patient has been afebrile for the last 24 hours. Blood pressure is 144/77, heart rate 121, respiratory rate 28, oxygen saturation 99% on 5 L per nasal cannula. HEENT: Pupils are equal and reactive. Oropharynx is clear. Neck: Supple. Chest: Reveals significant decreased breath sounds on the left. Cardiac: Increased rate, regular rhythm. Abdomen: Soft and obese. Extremities: Without edema. LABORATORY DATA: Pleural fluid has a pH of 7.0, white blood count 1273, glucose 65, total protein 4.3, amylase 11, LDH is greater than 2500. Pleural fluid gram stain reveals a few white blood cells but no organisms identified. Culture is pending. IMPRESSION: A 59-year-old with a history of lung cancer and history of lymphoma who now has: 1. Bloody exudative pleural effusion. 2. Multiple loculations identified on CT scan. 3. Hypercalcemia. 4. Small pulmonary emboli. 5. Deep vein thrombosis. RECOMMENDATIONS: 1. Continue heparin. This can be transitioned back to Lovenox at the discretion of the hospitalist. 2. Continue current antibiotics. The patient also has a gram-negative chantale in her urine culture. 3. Await culture and cytology report from pleural fluid. cc: Daniel Lara MD
[2019-02-28 07:47] LABS: BASO# 0.02 X1000 (0.0-0.2); BASO% 0.2 % (0.0-0.8); EOS# 0.03 X1000 (0.0-0.7); EOS% 0.2 % (0.0-10.0); HEMATOCRIT 33.6 % (37.0-47.0); HEMOGLOBIN 10.8 g/dL (12.0-16.0); IMM GRAN# 0.07 X1000 (0.0-0.04); IMM GRAN% 0.5 % (0.0-0.5); LYMPH# 0.95 X1000 (1.2-3.4); LYMPH% 7.2 % (20.5-51.1); MCH 31.2 PG (27-31); MCHC 32.1 g/dL (33-37); MCV 97.1 FL (81-99); MONO# 1.37 X1000 (0.11-0.59); MONO% 10.4 % (1.7-9.3); MPV 9.8 FL (7.4-10.4); NEUT# 10.75 X1000 (1.4-6.5); NEUT% 81.5 % (42.2-75.2); PLT 312 X1000 (130-400); RBC 3.46 XMIL (4.2-5.4); RDW 14.1 % (11.5-14.5); WBC 13.19 X1000 (4.8-10.8)
--- NOTE | 2019-02-28 08:29 | Diag Imaging Result Doc PS360 ---
CT THORAX W/O CONTRAST - 02/28/2019 INDICATION: SOB COMPARISON: 02/17/2019 FINDINGS: There is a trace free flowing right pleural effusion. There has been decrease in the small left pleural effusion. This is probably complex and somewhat loculated. There has been decrease in the significant infiltrate throughout the left lung. No new infiltrates. There is a small pericardial effusion that has decreased in size since prior. There is mild body wall edema that has worsened since prior. Upper abdominal images appear normal. Bones are intact. IMPRESSION: Overall moderate improvement from prior. This exam was performed using automated exposure control, adjustment of mA or kV according to patient size, and/or use of iterative reconstruction technique Electronically signed by Erich Valentin 02/28/2019 8:26 AM
[2019-02-28] MEDS: HYDROCHLOROTHIAZIDE PO SCH (08:54)
[2019-02-28] MEDS: PROZAC PO SCH (08:55)
[2019-02-28] MEDS: PULMICORT INH SCH ×2 (09:58→21:59)
[2019-02-28 10:00] LABS: AGAP 22; BUN 16 mg/dL (8-22); CALCIUM 9.4 mg/dL (8.8-10.2); CHLORIDE 97 mmol/L (98-107); COSMO 278; CREATININE 0.9 mg/dL (0.5-0.9); ESTIMATED GFR > 60; GLUCOSE 118 mg/dL (70-104); POTASSIUM 3.9 mmol/L (3.5-5.1); SODIUM 138 mmol/L (136-145); TCO2 19 mmol/L (25-35)
[2019-02-28] MEDS: VANCOMYCIN 1,250 MG in NS 250 ML IV SCH (10:43)
[2019-02-28] MEDS: HEPARIN 25,000 UNITS/D5W 25,000 UNIT/250 ML IV.SOLN IV SCH (10:59)
--- NOTE | 2019-02-28 11:21 | PROGRESS NOTE ---
DATE: 02/28/2019 SUBJECTIVE: This patient seems to be doing a little bit better compared with yesterday. It looks like she has a below the exudative pleural effusion and pneumonia on the left side. Culture so far has been negative. We did a CT scan today that showed a moderate improvement from prior. There are no new infiltrates, but she has loculated lesions. We will monitor. We will wait for more recommendations. OBJECTIVE: Vital Signs: Temperature 98.5 degrees, pulse 117, respiratory rate 28, blood pressure 136/89, oxygen saturation 96% on 3 L of nasal cannula. HEENT: Head normocephalic. No trauma. PERRLA. Neck: Supple. No JVD. No masses. Central trachea. Chest: Decreased breath sounds mostly on the left side. She does have a scar on the left posterior thoracic area that is sensitive to palpation. She has crepitus and crackles on the left side mostly at the bases. Abdomen: Soft, nontender, nondistended. No hepatosplenomegaly. Extremities: Trace edema. No clubbing, no cyanosis. Neurological: The patient is alert. She is oriented x3. No focal deficits. LABORATORY: WBC 13.1, hemoglobin 10.8, hematocrit 33.6, platelets 312,000. ASSESSMENT AND PLAN: 1. Left-sided pneumonia with below the exudative pleural effusion, multiple loculations per CT scan, seems to be better after the ultrasound-guided left thoracentesis where 500 mL of grossly serous and grossly sanguineous fluid was drained. We will continue to monitor. She is still on heparin drip. I will wait for Pulmonary recommendations. 2. Sepsis secondary to number 1. Continue with same management. WBC trending down. 3. Hypokalemia. Pending BMP today. It has been replaced yesterday. 4. Small pulmonary emboli noted on the CT scan. Also, she has a DVT in the left peroneal vein, also acute nonocclusive DVT in the right popliteal and left common femoral vein. Continue with heparin drip. 5. History of squamous cell lung cancer of the left upper lobe lung. Status post left upper lobectomy, and she did not require any adjuvant therapy. 6. History of follicular lymphoma. She was found to have stage III disease, and she was actually treated with Rituxan back in 05/2018. 7. History of chronic back pain, aware. 8. Hypertension. Continue home medication. 9. Hyperlipidemia. Continue home medication. 10. Hypoxemic respiratory failure, likely due to pneumonia and pleural effusion. We will continue with same management. 11. Asymptomatic bacteriuria. We will monitor for now. cc: Chris Andrade MD
[2019-02-28] MEDS ORDERED: TESSALON PO PRN (16:56)
--- NOTE | 2019-02-28 19:52 | HEMO/ONC PROGRESS NOTE ---
DATE: 02/28/2019 SUBJECTIVE: Ms. Villagomez is feeling better. She is sitting up in her hospital bed. VITAL SIGNS: Temperature 98.2 degrees, heart rate 114, respirations 20, blood pressure 141/99, O2 saturation 98% on 3 L nasal cannula. LABORATORY AND STUDIES: White blood cells 13.19, hemoglobin 10.8, platelet count 312,000. Sodium 138, potassium 3.9, chloride 97, CO2 of 19, BUN 16, creatinine 0.9, and glucose 118. PHYSICAL EXAMINATION: Cardiovascular: Tachycardia noted. Normal rhythm. Respiratory: She continues to have some scant wheezing and rales, improved from previous. Gastrointestinal: Abdomen is soft. Extremities: Some trace edema, slightly worse in the right lower extremity than the left. ASSESSMENT AND PLAN: 1. Pneumonia. Continue current management. Seems to be improving clinically. 2. Pleural effusion. Patient is now status post thoracentesis. Continue management per Pulmonology. 3. Sepsis secondary to her pneumonia. Continue current management. Improving. 4. History of squamous cell lung cancer of the left upper lobe. Possible recurrence. Workup is currently pending. 5. History of follicular lymphoma. Treated back in 2019. Again, possibility that she is having a recurrence of follicular lymphoma instead of her lung cancer. We will need tissue diagnosis to confirm. Workup pending. 6. Pulmonary emboli as well as deep vein thrombosis. Continue with anticoagulation. Should be able to transition back to Lovenox when okay with the primary team and Pulmonology. We will be available as needed over the weekend. We will follow up again regularly on Sunday. Dictated by ELIAS Levine for Mary Ann Fisher MD cc: Mary Ann Fisher MD I have seen and examined this patient and the above note reflects my history, physical examination, assessment and plan. Mary Ann Fisher MD [facility]
[2019-02-28] MEDS: ELAVIL PO SCH (21:02)
[2019-02-28] MEDS: LIPITOR PO SCH (21:02)
[2019-03-01] MEDS: HEPARIN 25,000 UNITS/D5W 25,000 UNIT/250 ML IV.SOLN IV SCH ×2 (03:09→20:31)
[2019-03-01] MEDS: ZOSYN 3.375 GM in NS 50 ML IV SCH ×4 (03:09→20:30)
[2019-03-01] MEDS: DUONEB (A & A) INH SCH ×4 (03:12→21:28)
[2019-03-01] MEDS: VANCOMYCIN 1,250 MG in NS 250 ML IV SCH ×2 (04:24→23:40)
[2019-03-01 06:36] LABS: BASO# 0.01 X1000 (0.0-0.2); BASO% 0.1 % (0.0-0.8); EOS# 0.01 X1000 (0.0-0.7); EOS% 0.1 % (0.0-10.0); HEMATOCRIT 33.9 % (37.0-47.0); HEMOGLOBIN 10.8 g/dL (12.0-16.0); IMM GRAN# 0.07 X1000 (0.0-0.04); IMM GRAN% 0.5 % (0.0-0.5); LYMPH# 0.73 X1000 (1.2-3.4); LYMPH% 5.6 % (20.5-51.1); MCH 30.8 PG (27-31); MCHC 31.9 g/dL (33-37); MCV 96.6 FL (81-99); MONO# 1.28 X1000 (0.11-0.59); MONO% 9.7 % (1.7-9.3); MPV 9.7 FL (7.4-10.4); NEUT# 11.04 X1000 (1.4-6.5); PLT 305 X1000 (130-400); RBC 3.51 XMIL (4.2-5.4); RDW 14.5 % (11.5-14.5); WBC 13.14 X1000 (4.8-10.8)
[2019-03-01 07:14] LABS: AGAP 20; BUN 17 mg/dL (8-22); CHLORIDE 99 mmol/L (98-107); COSMO 278; CREATININE 0.9 mg/dL (0.5-0.9); ESTIMATED GFR > 60; GLUCOSE 120 mg/dL (70-104); POTASSIUM 3.1 mmol/L (3.5-5.1); SODIUM 138 mmol/L (136-145); TCO2 19 mmol/L (25-35)
[2019-03-01] MEDS: PROZAC PO SCH (08:36)
[2019-03-01] MEDS: HYDROCHLOROTHIAZIDE PO SCH (08:36)
[2019-03-01] MEDS ORDERED: KLOR-CON PO ONE (08:49)
[2019-03-01] MEDS: PULMICORT INH SCH ×2 (09:16→21:28)
--- NOTE | 2019-03-01 10:51 | PROGRESS NOTE ---
DATE: 03/01/2019 SUBJECTIVE: This patient is feeling better compared with yesterday but she is still having shortness of breath and she is still tachypneic and tachycardic. Culture from the pleural fluid has been negative. Pulmonary Department and Hematology Oncology Department are following this patient closely. OBJECTIVE: Vital Signs: Temperature 98.6, pulse 111, respiratory rate 18, blood pressure 150/106, and oxygen saturation 97% on 3 L of nasal cannula. HEENT: Head is normocephalic. No trauma. PERRLA. Neck: Supple. No JVD. No masses. Central trachea. Chest: Decreased breath sounds, mostly on the left side with crepitus and crackles. She has a scar on the left posterior thoracic area that is sensitive to palpation. Abdomen: Soft, nontender, and nondistended. No hepatosplenomegaly. Extremities: Trace edema. No clubbing and no cyanosis. Neurological: The patient is alert. She is oriented times 3. No focal deficit. LABORATORY: WBC 13.1, hemoglobin 10.8, hematocrit 33.9, and platelet 305. Sodium 138, potassium 3.1, chloride 99, bicarbonate 19, BUN 17, creatinine 0.9, glucose 120, and calcium 10. ASSESSMENT AND PLAN: 1. Left-sided pneumonia with pleural effusion versus empyema, This patient has multiple loculations. Her CT scan seems to be better after the ultrasound-guided left thoracentesis, where 500 mL of grossly serosanguineous fluid was drained. We will continue to monitor. She is still on a heparin drip and I will wait for Pulmonary Department recommendations. Probably this patient will need to get a chest tube. 2. Sepsis secondary to #1. Continue with the same management. WBC is about the same as it was yesterday but better compared with admission. 3. Hypokalemia. I will replace the potassium today. 4. Small pulmonary emboli noted on the CT scan. Also, she has a deep vein thrombosis in the left peroneal vein and also acute nonocclusive deep vein thrombosis in the right popliteal and left common femoral vein. Continue with heparin drip. 5. History of squamous cell lung cancer of the left upper lobe lung, status post left upper lobectomy, and apparently she did not require any adjuvant therapy. 6. History of follicular lymphoma. She was found to have stage III disease. Hematology and Oncology Department are on board. 7. History of chronic back pain. Aware. 8. Hypertension. Continue with home medications. 9. Hyperlipidemia. Continue with home medications as well. 10. Hypoxemic respiratory failure likely due to #1. Continue with the same management. 11.Asymptomatic bacteruria. We will monitor for now. cc: Chris Andrade MD
[2019-03-01] MEDS ORDERED: CALMOSEPTINE OINTMENT TOP PRN (19:29)
[2019-03-01] MEDS: LIPITOR PO SCH (20:31)
[2019-03-01] MEDS: ELAVIL PO SCH (20:31)
[2019-03-02] MEDS: ZOSYN 3.375 GM in NS 50 ML IV SCH ×4 (02:23→22:18)
[2019-03-02] MEDS: DUONEB (A & A) INH SCH ×4 (03:46→21:33)
[2019-03-02 06:23] LABS: HEMATOCRIT 34.6 % (37.0-47.0); HEMOGLOBIN 11.1 g/dL (12.0-16.0); IMM GRAN# 0.09 X1000 (0.0-0.04); IMM GRAN% 0.7 % (0.0-0.5); LYMPH# 0.87 X1000 (1.2-3.4); LYMPH% 6.3 % (20.5-51.1); MCH 31.2 PG (27-31); MCHC 32.1 g/dL (33-37); MCV 97.2 FL (81-99); MONO# 1.24 X1000 (0.11-0.59); MPV 9.6 FL (7.4-10.4); NEUT# 11.51 X1000 (1.4-6.5); PLT 293 X1000 (130-400); RBC 3.56 XMIL (4.2-5.4); RDW 14.7 % (11.5-14.5); WBC 13.71 X1000 (4.8-10.8)
[2019-03-02 06:51] LABS: CALCIUM 9.5 mg/dL (8.8-10.2); POTASSIUM 3.5 mmol/L (3.5-5.1)
[2019-03-02] MEDS ORDERED: ZYVOX 600 MG/D5W 600 MG/300 ML IVPB IV SCH (08:15)
[2019-03-02] MEDS: NORVASC PO SCH ×2 (08:49→22:18)
[2019-03-02] MEDS: PROZAC PO SCH (08:49)
--- NOTE | 2019-03-02 09:20 | PROGRESS NOTE ---
DATE: 03/02/2019 SUBJECTIVE: This patient is feeling about the same compared with yesterday. She is still having shortness of breath. She is still tachypneic. Culture from the pleural fluid has been negative so far. Pulmonary Department on board. I will request an evaluation by Infectious Disease Department. OBJECTIVE: Vital Signs: Temperature 98.3 degrees, pulse 98, respiratory rate 20, blood pressure 140/88, oxygen saturation 98 on 3 L of nasal cannula. HEENT: Head normocephalic. No trauma. PERRLA. Neck: Supple. No JVD. No masses. Central trachea. Chest: Decreased breath sounds, mostly on the left side, with crepitus and crackles. She has a scar on the left posterior thoracic area that is really sensitive to palpation. Abdomen: Soft, nontender, nondistended. No hepatosplenomegaly. Extremities: Trace edema. No clubbing, no cyanosis. Neurological: The patient is alert. She is oriented x3. No focal deficits. LABORATORY DATA: WBC 13.7, hemoglobin 11.1, hematocrit 34.6, platelets 293,000. Sodium 136, potassium 3.5, chloride 98, bicarbonate 20, BUN 20, creatinine 1, glucose 121, calcium 9.5. ASSESSMENT AND PLAN: 1. Left-sided pneumonia with pleural effusion. This patient has multiple loculations. Her CT scan seems to be better after the ultrasound-guided left thoracentesis, where 500 mL of grossly serosanguineous fluid was drained. Will continue to monitor. She is still on the heparin drip, and I will wait for Pulmonary Department recommendations. Probably, this patient will need to get a chest tube and/or a thoracoscopy. 2. Sepsis secondary to #1. Continue with antibiotics, but I will stop the vancomycin due to her mild increase on her creatinine. Cultures have been negative so far. 3. Hypokalemia, resolved. 4. Small pulmonary emboli noted on the CT scan. Also, she has a deep venous thrombosis in the left peroneal vein, and also acute nonocclusive deep venous thrombosis in the right popliteal and left common femoral vein. Continue with heparin drip. Hematology/Oncology on board. 5. History of squamous cell lung cancer of the left upper lobe lung, status post left upper lobectomy. Apparently, she did not require any adjuvant therapy. 6. History of follicular lymphoma. She was found to have stage III disease. Hematology/Oncology on board. 7. History of chronic back pain, aware. 8. Hypertension. I will stop the hydrochlorothiazide, and I will start this patient on amlodipine. 9. Hyperlipidemia. Continue with home medications as well. 10. Mild acute kidney injury. I will stop the diuretic, and I will stop the vancomycin. 11. Hypoxemic respiratory failure, likely due to #1. 12. Asymptomatic bacteriuria. cc: Chris Andrade MD
[2019-03-02] MEDS: PULMICORT INH SCH ×2 (11:05→21:33)
--- NOTE | 2019-03-02 13:23 | INFECTIOUS DISEASE CONSULT REP ---
DATE: 03/02/2019 CONCLUSION: The patient has a left lung pneumonia which seems to be getting better since she has been placed on Zosyn and vancomycin. Unfortunately, the vancomycin has been discontinued because of the slight rise in creatinine. The patient's immunoglobulin levels show that there is a slight decrease in the IgG level at 615. I do not think this is clinically important and, furthermore, I do not think it requires infusion of immunoglobulin. The patient has a urine culture which is growing Enterobacter. The patient is asymptomatic with this. RECOMMENDATIONS: I agree with treating the patient with Zosyn. I have started the patient on Zyvox to replace the vancomycin which has been discontinued. I asked the patient if she could do without her Elavil and Prozac while we treat her with Zyvox and she said she could so I have discontinued Elavil and Zyvox and put in an order for the nurses that there should be no Prozac or Elavil given while the patient is on Zyvox. Since the patient has asymptomatic bacteruria with Enterobacter, she does not require treatment with antibiotics. DISCUSSION: The patient tells me that for 4 months, she has been having a cough and she brings up a sputum that has the color of milk. She also has dyspnea on exertion. She feels like she is running a fever but she has not measured it. The patient's CBC shows thus far a white blood cell count of 13,710, hemoglobin 11.1, and platelet count 293,000. Creatinine is 1. GFR is 57. Pleural fluid was obtained. It had a white blood cell count of 1273 with 58% monocytes and 42% polymorphic nuclear forms. IgA is 310, IgG is 615. AFB and fungal smears of her pleural fluid are negative/ culture and Gram stain of the pleural fluid also is negative. Blood cultures are negative. The patient's urine grew Enterobacter. The patient's pleural fluid, the AFB and fungal smears were negative. Culture is negative. The fluid and Gram stain is negative. Blood cultures are negative. Urine culture grew Enterobacter. PAST MEDICAL HISTORY/REVIEW OF SYSTEMS: Eyes and Ears: The patient has good vision and hearing. Neck: No stiffness. Respiratory: See present illness. GI: No nausea, vomiting, or diarrhea. The patient does tell me though that she has lost her appetite. Genitourinary: No dysuria or flank pain. Bones, Joints, and Muscles: No muscle aching or swollen joints. Neurologic: The patient says 5 days ago, she was unable to walk. She is not having any seizures. There is no tremor. GI: The patient has developed anorexia. She is not having diarrhea or constipation. MEDICAL SALES CONSULTANT HISTORY: Patient is a 2, para 1, AB 1. She delivered her child vaginally. PREVIOUS HOSPITALIZATIONS AND OPERATIONS: The patient has had labor and delivery, and a miscarriage. She had a part of her left lung removed for lung cancer. She has had a lymph node biopsy which revealed the patient had lymphoma. MEDICAL DISEASES: Positive for hypertension, lymphoma, and lung cancer. The patient has chronic obstructive pulmonary disease secondary to cigarette smoking. She also has hyperlipidemia. INFECTIOUS DISEASE HISTORY: Positive for UTI. The patient tells me that she had a TB skin test 4 years ago and it was negative. FAMILY HISTORY: Positive for diabetes mellitus, hypertension, and cancer. SOCIAL HISTORY: [place] . She lives with her daughter. She has dogs as pets. The patient quit smoking cigarettes about a year and a half ago. She does not drink alcoholic beverages and she does not use illicit drugs. MEDICATIONS: Her home medications include the following: Albuterol, amitriptyline, atorvastatin, Prozac, hydrochlorothiazide, Combivent inhaler, naproxen, and oxycodone. PHYSICAL EXAMINATION: Vital Signs: Temperature is 98.3 degrees, pulse 94, respirations 16, blood pressure is 140/88, the patient weighs 221 pounds. General: This is an ill-appearing, middle- aged female. She is in no acute distress. Head, Eyes, Ears, Nose, and Throat: The patient talks in kind of a low voice. She has poor oral hygiene. She does not have any white patches in her mouth. Neck: No meningismus. Lungs: There were no breath sounds on the left side. The right lung was clear. Cardiovascular: Heart rate is regular. Abdomen: Soft and nontender. Neurologic: The patient is awake. She can move her extremities. There is no tremor. Extremities: There is bilateral leg edema but no erythema. Integument: No rash. Thank you for the consult. cc: Herber Reis MD
[2019-03-02] MEDS: HEPARIN 25,000 UNITS/D5W 25,000 UNIT/250 ML IV.SOLN IV SCH (13:45)
[2019-03-02] MEDS: ZYVOX PO SCH (19:01)
[2019-03-02] MEDS: LIPITOR PO SCH (22:18)
[2019-03-03] MEDS: DUONEB (A & A) INH SCH ×4 (03:06→21:28)
[2019-03-03] MEDS: ZOSYN 3.375 GM in NS 50 ML IV SCH ×4 (03:41→20:36)
[2019-03-03 06:13] LABS: BASO# 0.02 X1000 (0.0-0.2); BASO% 0.1 % (0.0-0.8); HEMATOCRIT 35.2 % (37.0-47.0); HEMOGLOBIN 11.5 g/dL (12.0-16.0); IMM GRAN# 0.16 X1000 (0.0-0.04); IMM GRAN% 1.1 % (0.0-0.5); LYMPH# 0.86 X1000 (1.2-3.4); LYMPH% 6.1 % (20.5-51.1); MCH 31.3 PG (27-31); MCHC 32.7 g/dL (33-37); MCV 95.7 FL (81-99); MONO# 1.25 X1000 (0.11-0.59); MONO% 8.9 % (1.7-9.3); MPV 9.6 FL (7.4-10.4); NEUT# 11.83 X1000 (1.4-6.5); NEUT% 83.8 % (42.2-75.2); PLT 339 X1000 (130-400); RBC 3.68 XMIL (4.2-5.4); RDW 14.9 % (11.5-14.5); WBC 14.12 X1000 (4.8-10.8)
--- NOTE | 2019-03-03 06:40 | Diag Imaging Result Doc PS360 ---
CHEST-PORTABLE - 03/03/2019 INDICATION: dyspnea COMPARISON: 02/27/2019 FINDINGS: Stable severe cardiomegaly. There is worsening interstitial pulmonary edema. Stable multifocal partially loculated pleural effusions on the left side. IMPRESSION: Worsening interstitial pulmonary edema. Electronically signed by Erich Valentin 03/03/2019 6:38 AM
[2019-03-03 06:44] LABS: ALBUMIN 3.3 g/dL (3.5-5.0); CALCIUM 9.6 mg/dL (8.8-10.2); CREATININE 1.1 mg/dL (0.5-0.9); MAGNESIUM 2.1 mg/dL (1.5-2.7); POTASSIUM 3.3 mmol/L (3.5-5.1); TOTAL BILIRUBIN 0.91 mg/dL (0.20-1.00); TOTAL PROTEIN 6.7 g/dL (6.3-8.3)
[2019-03-03] MEDS: HEPARIN 25,000 UNITS/D5W 25,000 UNIT/250 ML IV.SOLN IV SCH (07:33)
[2019-03-03] MEDS ORDERED: HEPARIN 25,000 UNITS/D5W 25,000 UNIT/250 ML IV.SOLN IV SCH (07:45)
[2019-03-03] MEDS: ZYVOX PO SCH ×2 (08:12→20:36)
[2019-03-03] MEDS: NORVASC PO SCH ×2 (08:12→20:36)
--- NOTE | 2019-03-03 09:20 | PROGRESS NOTE ---
DATE: 03/03/2019 INTERVAL HISTORY: No acute events overnight. She has been tachycardic, and she has been increasingly feeling short of breath. SUBJECTIVE: She states she is not able to breathe. She feels as if the pleural effusion is reaccumulating. We discussed about exam findings. We discussed about giving her Lasix. I answered all of her questions. VITALS: Temperature 97.7 degrees, pulse 113 respiratory 21, and blood pressure 135/96. She is saturating 96% on 3 L nasal cannula. PHYSICAL EXAMINATION: General: In moderate distress because of shortness of breath. HEENT: Oral cavity is moist. Lungs: She has significantly decreased air entry on left hemithorax. Adequate air entry on right hemithorax. Heart: S1, S2 normal. No murmur or gallop. Abdomen: Soft, nontender, except mild soreness in the left quadrant. Extremities: She has bilateral lower extremity edema. She also has a catheter. LABORATORY: Labs suggestive of leukocytosis, normocytic anemia, and normal platelet count. PTT is 100. She does have hyponatremia, hypochloremia and hypokalemia. She also has acute kidney injury and mild transaminitis. Chest x-ray suggests worsening interstitial pulmonary edema. ASSESSMENT AND PLAN: 1. Sepsis and acute hypoxic respiratory failure due to left lung multifocal pneumonia and left loculated exudative pleural effusion status post ultrasound-guided thoracentesis on 02/27. Continue oxygenation. Start patient on intravenous Lasix. Continue intravenous Zosyn. Follow up cytology report. I would appreciate Pulmonology recommendation considering her recurrent pleural effusion. Her vancomycin was stopped because of worsening kidney function. I will continue her on linezolid as per ID recommendation. 2. Small pulmonary embolism with bilateral lower extremity DVT. Stop intravenous heparin and start patient on subcutaneous enoxaparin. 3. History of squamous cell lung cancer of left upper lobe lung status post left upper lung lobectomy in 2018; history of follicular lymphoma, stage III with last chemotherapy in 2019; now with recurrent left pleural effusion and osteolytic lesions involving the ribcage. Hematology Oncology on board. The patient is aware about this diagnosis. 4. Others: Continue amlodipine for essential hypertension; her asymptomatic bacteria does not need treatment. She also has history of chronic back pain. 5. Disposition: I will continue to monitor patient in PVC unit. Plan of care discussed with her. Her questions have been answered. cc: Ravindra Peck MD
[2019-03-03] MEDS: PULMICORT INH SCH ×2 (11:01→21:28)
[2019-03-03] MEDS: LASIX IV SCH ×2 (11:15→13:46)
[2019-03-03] MEDS: LOVENOX SUBQ SCH ×2 (11:16→22:23)
[2019-03-03] MEDS: KLOR-CON PO SCH ×2 (11:16→13:46)
--- NOTE | 2019-03-03 12:04 | EKG Report ---
Test Performed on : 03/03/2019 11:57:50 AM Test Reason : Arrythmia Blood Pressure : / mmHG Vent. Rate : 185 BPM Atrial Rate : 208 BPM P-R Int : 000 ms QRS Dur : 080 ms QT Int : 252 ms P-R-T Axes : 000 023 243 degrees QTc Int : 442 ms Atrial fibrillation. with rapid ventricular response. Low voltage QRS Nonspecific ST and T wave abnormality Abnormal ECG When compared with ECG of 03-MAR-2019 11:57, (Unconfirmed) ST now depressed in Inferior leads ST less depressed in Anterior leads Nonspecific T wave abnormality now evident in Inferior leads Nonspecific T wave abnormality has replaced inverted T waves in Lateral leads Confirmed by Sunny FUENTES, Sudhakar Miranda ([id number]) on 03/04/2019 7:41:30 AM
[2019-03-03] MEDS ORDERED: LOPRESSOR IV ONE (12:05)
[2019-03-03] MEDS ORDERED: LOPRESSOR PO ONE (12:06)
--- NOTE | 2019-03-03 14:17 | EKG Report ---
Test Performed on : 03/03/2019 1:52:02 PM Test Reason : rythm change Blood Pressure : / mmHG Vent. Rate : 105 BPM Atrial Rate : 105 BPM P-R Int : 136 ms QRS Dur : 084 ms QT Int : 368 ms P-R-T Axes : 044 023 058 degrees QTc Int : 486 ms Sinus tachycardia. Nonspecific T wave abnormality Abnormal ECG When compared with ECG of 03-MAR-2019 11:57, (Unconfirmed) Sinus rhythm. has replaced Atrial fibrillation. Vent. rate has decreased BY [address] no longer depressed in Inferior leads ST no longer depressed in Anterior leads Nonspecific T wave abnormality no longer evident in Inferior leads Confirmed by Sunny FUENTES, Sudhakar Miranda ([id number]) on 03/04/2019 7:41:44 AM
[2019-03-03] MEDS: LIPITOR PO SCH (20:36)
--- NOTE | 2019-03-03 22:59 | HEMO/ONC PROGRESS NOTE ---
DATE: 03/03/2019 SUBJECTIVE: Ms. Villagomez is doing okay today. She reports that she had a rough weekend. OBJECTIVE: Vital Signs: Temperature 97.3 degrees, heart rate 184, respiratory rate 35, O2 saturation 96% on 3 L nasal cannula. LABS: White blood cells 14.12, hemoglobin 11.5, platelets 339,000. Sodium 134, potassium 3.3, chloride 96, CO2 16, BUN 25, creatinine 1.1, glucose 128. PHYSICAL EXAM: CV: Tachycardia. Irregular rhythm. Respiratory: Coarse breath sounds with rales and rhonchi noted bilaterally. Gastrointestinal: Abdomen soft. Extremity: She has some trace bilateral extremity edema. ASSESSMENT AND PLAN: 1. Likely lung cancer recurrence. We are waiting for further workup. Patient will need biopsy for tissue diagnosis. Also an outpatient PET is currently pending. 2. Sepsis and acute hypoxic respiratory failure due to left lung multifocal pneumonia and left loculated exudate of pleural effusion. She had a thoracentesis on 02/27. Her respiratory status has declined since we saw her on Sunday. They now have her on Lasix as well as intravenous antibiotics. Continue management per the primary team as well as pulmonology. She has also had recurrent of her pleural effusion and again awaiting pulmonology recommendations. 3. Small pulmonary embolism as well as bilateral lower extremity deep vein thrombosis. Recommend that she does continue Lovenox at 1 mg/kg q.12 hours for the time being. 4. History of follicular lymphoma treated back in May 2018. She also has the history of squamous cell lung cancer. She has recently had hypercalcemia and the picture is likely that she has recurrent lung cancer. Again, have to wait final workup. Dictated by ELIAS Levine for Mary Ann Fisher MD cc: Mary Ann Fisher MD I have seen and examined the patient and the above note reflects my history, physical, assessment and plan. Mary Ann ZHANG
[2019-03-03] MEDS: MORPHINE IV PRN (23:52)
[2019-03-04] MEDS: ZOSYN 3.375 GM in NS 50 ML IV SCH ×4 (02:12→20:41)
[2019-03-04] MEDS: DUONEB (A & A) INH SCH ×4 (03:25→21:28)
[2019-03-04 05:47] LABS: BASO# 0.01 X1000 (0.0-0.2); BASO% 0.1 % (0.0-0.8); HEMATOCRIT 36.5 % (37.0-47.0); HEMOGLOBIN 11.7 g/dL (12.0-16.0); IMM GRAN# 0.27 X1000 (0.0-0.04); IMM GRAN% 1.6 % (0.0-0.5); LYMPH# 0.73 X1000 (1.2-3.4); LYMPH% 4.3 % (20.5-51.1); MCHC 32.1 g/dL (33-37); MCV 96.6 FL (81-99); MONO# 1.09 X1000 (0.11-0.59); MONO% 6.4 % (1.7-9.3); MPV 9.6 FL (7.4-10.4); NEUT# 14.99 X1000 (1.4-6.5); NEUT% 87.6 % (42.2-75.2); PLT 315 X1000 (130-400); RBC 3.78 XMIL (4.2-5.4); RDW 14.9 % (11.5-14.5); WBC 17.09 X1000 (4.8-10.8)
[2019-03-04 06:10] LABS: CALCIUM 9.5 mg/dL (8.8-10.2); CREATININE 1.3 mg/dL (0.5-0.9); MAGNESIUM 2.2 mg/dL (1.5-2.7); POTASSIUM 4.1 mmol/L (3.5-5.1)
--- NOTE | 2019-03-04 06:59 | INFECTIOUS DISEASE PROGRESS NO ---
DATE: 03/03/2019 PRESENT ILLNESS: Ms. Villagomez is being treated for a left lung pneumonia. She is status post thoracentesis with a history of a previous squamous cell lung cancer of the left upper lobe and follicular lymphoma. There was a previous Enterobacter found in her urine. However, this is asymptomatic and does not need to be treated. MEDICATIONS: She is receiving Zyvox 600 mg by mouth every 12 hours and Zosyn 3.375 g IV every 6 hours. PHYSICAL EXAMINATION: Vital Signs: Temperature is 97.5 degrees, pulse rate 89, respiratory rate 38, blood pressure 99/76, O2 saturation is 94% on 3 L nasal cannula. General: This is a chronically ill-appearing, middle-aged female. She is sitting up in the bed, currently in mild to moderate respiratory distress. HEENT: Atraumatic, normocephalic. Oral mucous membranes are pink and moist. Dentition is poor. Conjunctivae are pink. Neck: Supple. Trachea is midline. Cardiovascular: Heart rate and rhythm are regular. Normal sinus rhythm on the monitor. Respiratory: The patient is tachypneic and dyspneic. Lung sounds have some coarse wheezes noted in the upper lobes and diminished in the bases. Abdomen: Soft, obese, and nontender. Bowel sounds are active. Integumentary: Skin is warm and dry. Neurologic: She is awake, alert, and oriented. Able to move around in the bed with difficulty noted due to shortness of breath. LABORATORY AND X-RAY: Today, her white count is 14.12, hemoglobin 11.5, platelet count 339,000. Creatinine is 1.1. GFR 51. Total bilirubin 0.91, AST 63, ALT 69, alkaline phosphatase 173. Chest x-ray today shows worsening interstitial pulmonary edema with multifocal partially-loculated pleural effusions on the left side. ASSESSMENT AND PLAN: Ms. Villagomez is being treated for a pneumonia to the left lung using Zyvox and Zosyn, which we will continue at this time. She is having some mild to moderate respiratory distress, which appears to not be new for her. She actually states she is feeling better. There was a previous Enterobacter found in her urine. However, this is asymptomatic and does not need to be treated. For now, we will continue her medication regimen as ordered. These plans have been discussed with and recommended by Dr. Reis. COMORBIDITIES: Include that she is obese, with COPD, and history of lymphoma and lung cancer which may have reoccurred. Dictated by JAIRO Easton for Herber Reis MD cc: Herber Reis MD MTDD
--- NOTE | 2019-03-04 07:51 | PULMONOLOGY PROGRESS NOTE ---
DATE: 03/03/2019 SUBJECTIVE: The patient appears to be more short of breath than at my last visit on . She appears fatigued. She has decreased appetite. OBJECTIVE: Vital Signs: The patient has been afebrile for the last 24 hours. Blood pressure 99/76, heart rate 89, respiratory rate 38, oxygen saturation 94% on 3 L per nasal cannula. HEENT: Pupils are equal and reactive. Oropharynx appears clear. Neck: Supple. Chest: Significant decreased breath sounds, left base. Cardiac: Regular rate and rhythm. Abdomen: Obese and soft. Extremities: Without edema. IMAGING AND LABORATORY DATA: Per phone conversation with Dr. Gabi Montilla: Pleural fluid consistent with squamous cell carcinoma. Sodium 134, potassium 3.3, chloride 96, bicarbonate 16, BUN 25, creatinine 1.1. Chest x-ray reveals cardiomegaly with worsening interstitial edema and loculated effusions on the left. IMPRESSION: A 59-year-old with: 1. 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 2. Pleural effusion with multiple loculations on CT scan. 3. Pulmonary emboli. 4. Deep vein thrombosis. RECOMMENDATIONS: 1. Await Oncology recommendations for treatment. The patient's overall status/clinical performance appears to be declining. She has multiple areas of loculation, and a single chest tube would provide minimal benefit. She would require a thoracoscopy to improve her radiographic findings, but she does not appear to be a candidate for such an aggressive intervention. 2. From a pulmonary standpoint, she can be transitioned to Lovenox or to an oral anticoagulant, such as Xarelto or Eliquis. 3. Overall prognosis is poor. The patient was in mild respiratory distress this evening, and no other family members were in the room. I have not relayed the diagnosis to the patient. cc: Daniel Lara MD
--- NOTE | 2019-03-04 08:34 | EKG Report ---
Test Performed on : 03/04/2019 07:14:52 AM Test Reason : Afib/SR Blood Pressure : / mmHG Vent. Rate : 091 BPM Atrial Rate : 091 BPM P-R Int : 136 ms QRS Dur : 080 ms QT Int : 394 ms P-R-T Axes : 029 028 054 degrees QTc Int : 484 ms Normal sinus rhythm. Low voltage QRS Borderline ECG When compared with ECG of 03-MAR-2019 13:52, (Unconfirmed) No significant change was found Confirmed by Sunny FUENTES, Sudhakar Miranda ([id number]) on 03/05/2019 7:42:11 AM
[2019-03-04] MEDS: NORVASC PO SCH ×2 (08:45→20:41)
[2019-03-04] MEDS: ZYVOX PO SCH ×2 (08:45→20:41)
[2019-03-04] MEDS: LOVENOX SUBQ SCH ×2 (09:03→21:35)
[2019-03-04] MEDS: PULMICORT INH SCH ×2 (09:21→21:28)
[2019-03-04] MEDS: LASIX IV SCH ×2 (11:35→17:06)
--- NOTE | 2019-03-04 11:36 | PROGRESS NOTE ---
DATE: 03/04/2019 INTERVAL HISTORY: No acute event events overnight. The urine output has not been charted. The patient states that she felt slightly better today than she did yesterday. However, she still appears short of breath. I discussed with her about the CT scan chest finding of lytic rib lesions. I discussed with her that her pleural effusion could possibly be malignant. I also discussed with her that though the final cytology report is pending. I also discussed with her about Lasix and kidney dysfunction. The patient expresses that if it is a recurrence of cancer, then she would rather go home and be comfortable and let the disease take its natural course. I informed her that I would involve palliative care to help guide her decision making. VITALS: Temperature 98.4 degrees, pulse 90, respiratory rate 19. Her blood pressure is 130/95. She is saturating 95% on 3 L nasal cannula. PHYSICAL EXAMINATION: She is in moderate respiratory distress. She is not able to complete her sentences. Oral cavity is moist. She has significantly decreased air movement on the left hemithorax. She has rhonchi on the right hemithorax, but better air entry.Cardiovascular: S1, S2 is normal. Regular. No murmur, rub, or gallop. Abdomen: Obese, soft, nontender. She has bilateral lower extremity edema. LABORATORY: Data suggestive of persistent leukocytosis, normocytic anemia, normal platelet count, resolution of hypokalemia, worsening kidney function with acute kidney injury. Microbiology pleural fluid has not shown any growth. The Gram stain had a few white blood cells. The cytology report is still pending. ASSESSMENT AND PLAN: 1. Sepsis and acute hypoxic respiratory failure due to left lung multifocal pneumonia and left loculated exudative pleural effusion status post thoracentesis on February 27. Continue oxygenation, intravenous Zosyn, oral linezolid. I will give her additional doses of Lasix to help with her shortness of breath. Looking at the CT scan chest finding, I conveyed to the patient that it is possible that this is a malignant effusion. However, considering it is loculated, there are not too many options to offer as per Pulmonology recommendations. 2. Pulmonary embolism with bilateral lower extremity deep venous thrombosis. Continue subcutaneous enoxaparin. 3. Acute kidney injury likely due to intravenous Lasix use. However, she is in significant shortness of breath. I will give her additional doses of Lasix and will follow up with chest x-ray. 4. 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 Hematology/Oncology on board. I will appreciate recommendation regarding possible palliative course. The palliative care team has been consulted. 5. Others: She did have an episode of atrial fibrillation with rapid ventricular rate, which resolved on its own yesterday after intravenous and oral metoprolol; continue amlodipine for essential hypertension. 6. Disposition: Continue to monitor patient in PVC Unit. Palliative care team has been consulted. The patient may decide to go home with home hospice, however she is in the process of making up her mind. Will appreciate Oncology recommendations as well. cc: Ravindra Peck MD MTDD
[2019-03-04] MEDS: MORPHINE IV PRN ×2 (12:11→20:48)
[2019-03-04] MEDS ORDERED: LOPRESSOR IV ONE (12:24)
[2019-03-04] MEDS: LOPRESSOR PO SCH ×2 (12:38→20:41)
--- NOTE | 2019-03-04 14:53 | INFECTIOUS DISEASE PROGRESS NO ---
DATE: 03/04/2019 PRESENT ILLNESS: The patient has the patient. The pleural effusion has cells in him identified by Dr. Montilla to be squamous cell carcinoma. The patient does have congestion in her lung and she does have leukocytosis and I am concerned that there could be a superimposed pneumonia as well. MEDICATIONS: The patient is on Zyvox and Zosyn. PHYSICAL EXAMINATION: Vital Signs: Temperature is 98.1 degrees, pulse 92, respirations 24, blood pressure 140/84. General: This is a chronically ill and dyspneic, middle-aged female. Head/eyes/ears/nose/throat: She can hear my spoken words and see near objects. She has poor oral hygiene. Neck: No stiffness. Lungs: Decreased breath sounds in the left lung. The right lung was clear. Abdomen: Soft and nontender. Cardiovascular: Heart rate is regular. Neurologic: The patient is awake. She can move her extremities. There is no tremor. LAB AND X-RAY: As mentioned above, Dr. Montilla identified the pleural fluid cells to be squamous cell carcinoma. The patient's CBC has a white count of 17,090, hemoglobin 11.7, and platelet count 315,000. Creatinine is 1.3. GFR is 42. Pleural fluid is sterile. ASSESSMENT AND PLAN: Unfortunately, the patient has had a recurrence of her lung cancer and it may well be diffuse in both lungs. She does have a leukocytosis and she is not on steroids, so I am concerned that she could have pneumonia superimposed on her lung cancer. My plan is to continue the antibiotics for now and I have ordered a procalcitonin level and if it is low, then I will stop the antibiotics even if the patient continues to have leukocytosis. COMORBIDITIES: The patient has COPD. She has a history of lymphoma and lung cancer. With the latter, unfortunately, it has recurred. cc: Herber Reis MD
--- NOTE | 2019-03-04 20:23 | Diag Imaging Result Doc PS360 ---
EXAM: CHEST-PORTABLE INDICATION: Follow up left pleural effusion TECHNIQUE: One view COMPARISON: 03/03/2019 FINDINGS: The pleural effusion is stable to slightly increased on the left. There is a slight increased opacity in the left upper lung zone as compared to the previous study. Bilateral interstitial thickening is approximately stable. No other new consolidation is identified. Cardiac silhouette is stable. IMPRESSION: Stable to slight worsening on the left as described. Electronically signed by David Fonseca 03/04/2019 8:20 PM
[2019-03-04] MEDS: LIPITOR PO SCH (20:41)
--- NOTE | 2019-03-04 22:12 | PULMONOLOGY PROGRESS NOTE ---
DATE: 03/04/2019 SUBJECTIVE: The patient is awake and alert. She has less shortness of breath than yesterday. OBJECTIVE: Vital Signs: The patient has been afebrile for the last 24 hours. Blood pressure 113/78, heart rate 84, respiratory rate 24, oxygen saturation 95% on 3 L. HEENT: Pupils are equal and reactive. Oropharynx appears clear. Neck: Supple. Chest: Reveals diminished breath sounds throughout the left hemithorax. Cardiac: S1, S2. Abdomen: Soft. Extremities: Without edema. IMPRESSION: 1. Stage IV lung cancer with malignant pleural effusion. 2. Poor performance status. 3. Pulmonary emboli. 4. Deep vein thrombosis. PLAN: 1. Await oncology recommendations. 2. Agree with end of life discussions and current resuscitation status. 3. Continue Lovenox. 4. Overall prognosis is poor. cc: Daniel Lara MD
[2019-03-05] MEDS: MORPHINE IV PRN ×2 (01:42→20:37)
[2019-03-05] MEDS: ZOSYN 3.375 GM in NS 50 ML IV SCH ×3 (01:42→13:21)
[2019-03-05] MEDS: DUONEB (A & A) INH SCH ×5 (03:30→23:30)
[2019-03-05 06:17] LABS: CALCIUM 9.2 mg/dL (8.8-10.2); CREATININE 1.9 mg/dL (0.5-0.9); POTASSIUM 5.2 mmol/L (3.5-5.1)
[2019-03-05] MEDS: ZYVOX PO SCH (08:49)
[2019-03-05] MEDS: LOPRESSOR PO SCH ×2 (09:12→21:03)
[2019-03-05] MEDS: NORVASC PO SCH ×2 (09:13→21:04)
[2019-03-05] MEDS: PULMICORT INH SCH ×2 (09:20→19:18)
[2019-03-05] MEDS ORDERED: MORPHINE IV PRN (12:14)
--- NOTE | 2019-03-05 13:15 | PROGRESS NOTE ---
DATE: 03/05/2019 INTERVAL HISTORY: No acute events overnight. She has reaccumulation of left-sided pleural effusion, some atelectasis, pulmonary edema. She did not respond really well to Lasix, and in fact, her kidney function started getting worse. OBJECTIVE: Current Vital Signs: Temperature of 98.8 degrees, pulse 85, respiratory rate 23, blood pressure 90/70, she is saturating 96% on 5 L nasal cannula. General: She appears in mild- to-moderate distress. HEENT: Oral cavity is moist. Lungs: On the right hemithorax, she has inspiratory crackles and diffuse rhonchi. On the left hemithorax, she does have significantly decreased air entry. She is in moderate respiratory distress. Cardiovascular: S1, S2 normal. Tachycardic. No murmur or gallop. Abdomen: Obese, soft, nontender. Extremities: She has bilateral lower extremity edema. LABORATORY DATA: Suggestive of a mild hyperkalemia, low carbon dioxide, elevated BUN and creatinine. IMAGING: Chest x-ray performed yesterday had stable to slight worsening of the left hemithorax effusion. ASSESSMENT: 1. Sepsis and acute hypoxic respiratory failure due to left lung multifocal pneumonia and left loculated exudative effusion, status post thoracentesis on 02/27/2019. This is likely malignant pleural effusion due to metastatic lung cancer. 2. Pulmonary embolism with bilateral lower extremity deep venous thrombosis. 3. Acute kidney injury due to Lasix use. 4. History of squamous cell lung cancer of left upper lobe, status post lobectomy in 2018, and now likely with recurrence. 5. History of follicular lymphoma. 6. Intermittent episodes of paroxysmal atrial fibrillation. PLAN: The patient has poor physical deconditioning at the moment, and she has not been responding to Lasix. I had a detailed discussion with Pulmonology and Oncology about her course, and I think the patient's wishes of going home with home hospice and let the disease take its natural course could be appropriate. I am starting the patient on as-needed BiPAP, as well as IV morphine. Unfortunately, considering her effusions were loculated, and previous thoracenteses did not help, a repeat thoracentesis or thoracotomy or PleurX catheter could not be options for her. I will continue albuterol/ipratropium nebulization, current antibiotics, and morphine as needed. Hospice placement is awaited. I conveyed this information to the patient. I called the patient's daughter and had left a voice message. cc: Ravindra Peck MD
[2019-03-05] MEDS ORDERED: ATIVAN PO PRN (13:21)
[2019-03-05] MEDS ORDERED: LOVENOX SUBQ SCH (22:00)
[2019-03-06 00:38] VITALS: BP 103/73
[2019-03-06] MEDS: DUONEB (A & A) INH SCH (03:05)
--- NOTE | 2019-03-06 15:35 | DISCHARGE SUMMARY ---
ADMISSION DATE: 02/25/2019 DISCHARGE DATE: 03/06/2019 TIME OF : 4:41 AM. CAUSE OF : 1. Metastatic lung cancer. 2. Malignant pleural effusion. 3. Hypoxic respiratory failure. 4. Sepsis. 5. Left lung multifocal pneumonia. HOSPITAL COURSE SUMMARY: Ms. Villagomez is a 59-year-old lady who was admitted on 02/25/2019 with chief complaints of shortness of breath and cough. She was found to have pneumonia and pleural effusion affecting left side of her lung. She was started on intravenous antibiotics and she underwent ultrasound-guided thoracenteses, which had detected exudative effusion. Unfortunately, the CT scan of the chest had also detected multiple lytic lesions affecting the rib cage, considering she had prior history of lung cancer with exudative pleural effusion and lytic rib cage. She was diagnosed with stage IV lung cancer. She also was found to have DVT and PE. She was treated with anticoagulation. Unfortunately, her pleural effusion was malignant and had loculations and she did not improve after thoracentesis, so intravenous diuresis was planned, which she did not respond to. In fact, her kidney status started getting worse. Understanding the nature of her illness, the patient decided to get the comfort care only and her code status was changed to DNR level 1. Hospice team was consulted and the patient was to go home on home hospice. She was started on intravenous morphine and intravenous lorazepam to address her pain and anxiety. However, before hospice arrangement could be made, she on 03/06/2019. Less than 30 minutes spent in dictating this discharge summary. cc: Ravindra Peck MD
== END 2019-03-06 04:41 | disposition expired | DRG 871 ==
LOC: ED 17:55 → SUATTDRO 23:12 → EDIPHOLD 23:12 → 2N 02-26 13:04
PROVIDERS: ATTEND Internal Medicine